=== PATIENT | male | born 1965 | race Caucasian/White ===

== ENCOUNTER 2019-07-31 12:02 | Emergency (ER) | payer OTHER, BC ==
[2019-07-31] MEDS ORDERED: NORCO 5/325 MG PO ONE (12:53)
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
[2019-07-31] MEDS ORDERED: NORCO 5/325 MG ONE (13:03)
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
[2019-07-31 14:28] VITALS: BP 131/85; PULSE 83
[2019-07-31 19:59] VITALS: O2SAT 97
== END 2019-07-31 14:30 | disposition home or self-care (01) ==
LOC: ED 12:02
DX: R07.89 Other chest pain (principal); M25.532 Pain in left wrist; S63.502A Unspecified sprain of left wrist, initial encounter; V89.2XXA Person injured in unspecified motor-vehicle accident, traffic, initial encounter; I10 Essential (primary) hypertension; E78.00 Pure hypercholesterolemia, unspecified; E11.9 Type 2 diabetes mellitus without complications; Z86.73 Personal history of transient ischemic attack (TIA), and cerebral infarction without residual deficits
CPT/HCPCS: 71046; 73110; 73130; 99284; A9270-GY

== ENCOUNTER 2020-12-03 03:03 | Emergency (ER) | payer OTHER ==
[2020-12-03] MEDS ORDERED: NITRO-BID 2% UD PACKETS TOP ONE (03:10)
--- NOTE | 2020-12-03 03:11 | ERPHSYRPT ---
- History of Present Illness Time Seen by Provider: 12/03/20 03:20 Historian: patient Exam Limitations: no limitations Physician History: Patient is a 55-year-old male presents to our emergency department with complaints of chest tightness. Patient is an employee at [employer]. Patient states he was sitting down and developed a chest tightness that spanned across his chest. Symptoms lasted for approximately 25 minutes. No associated nausea vomiting or diaphoresis. Patient had a cardiac cath in April. Patient states his blockage at that time was approximately 40%. Patient is not a candidate for stenting. 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 Symptoms are constant. Symptoms are moderate in intensity. No specific worsening improving factors. No trauma no fevers. Patient voices no other complaints or concerns at this time. Timing/Duration: other (A 5 minutes.) Activities at Onset: none Quality: pressure Location: substernal Chest Pain Radiation: no radiation Severity of Pain-Max: moderate Severity of Pain-Current: mild Modifying Factors: Improves With: nothing Associated Symptoms: denies symptoms Prior Chest Pain/Cardiac Workup: no prior chest pain Nitro Today/Relief: no nitro taken today Aspirin Treatment Today: no aspirin today Allergies/Adverse Reactions: codeine [Codeine] Allergy (Verified 12/03/20 03:21) Home Medications: Amlodipine Besylate/Benazepril [Amlodipine-Benazepril 5-20 mg] 1 each PO DAILY 09/22/12 [History] Clopidogrel Bisulfate 75 mg [PLAVIX 75 MG Tablet] 75 mg PO DAILY 09/22/12 [History] Atorvastatin Calcium [Lipitor] 80 mg PO HS 07/31/19 [History] Esomeprazole Magnesium [Nexium] 20 mg PO Q12H PRN PRN 07/31/19 [History] Ezetimibe 10 mg [Zetia 10 MG] 10 mg PO DAILY 07/31/19 [History] Metformin HCl 500 mg [Glucophage 500 MG] 500 mg PO DAILY 07/31/19 [History] Metoprolol Tartrate 25 mg [Lopressor 25MG Tab] 50 mg PO BID 07/31/19 [History] Nitroglycerin 0.4 mg (Ed) [Nitrostat 0.4 MG (ED)] 0.4 mg SL PRN 07/31/19 [History] Potassium Chloride 10 Meq Tab* [Klor Con 10 MEQ] 20 meq PO DAILY 07/31/19 [History] hydroCHLOROthiazide [Hydrochlorothiazide] 12.5 mg PO DAILY 07/31/19 [History] Apixaban [Eliquis 2.5 mg Tablet] 5 mg PO BID 12/03/20 [History] Fluticasone/Vilanterol [Breo Ellipta 100-25 Mcg INH] 1 puff PO DAILY 12/03/20 [History] Isosorbide Mononitrate 30 mg [Imdur 30 MG] 30 mg PO DAILY 12/03/20 [History] Sotalol HCl 80 mg [Betapace 80 MG] 80 mg PO BID 12/03/20 [History] Hx Tetanus, Diphtheria Vaccination/Date Given: No Hx Influenza Vaccination/Date Given: No Hx Pneumococcal Vaccination/Date Given: No - Review of Systems Constitutional: No Symptoms, No Fever, No Chills Eyes: No Symptoms Ears, Nose, & Throat: No Symptoms Respiratory: No Symptoms, No Cough, No Dyspnea Cardiac: No Symptoms, No Chest Pain, No Edema, No Syncope Abdominal/Gastrointestinal: No Symptoms, No Abdominal Pain, No Nausea, No Vomiting, No Diarrhea Genitourinary Symptoms: No Symptoms, No Dysuria Musculoskeletal: No Symptoms, No Back Pain, No Neck Pain Skin: No Symptoms, No Rash Neurological: No Symptoms, No Dizziness, No Focal Weakness, No Sensory Changes Psychological: No Symptoms Endocrine: No Symptoms Hematologic/Lymphatic: No Symptoms Immunological/Allergic: No Symptoms All Other Systems: Reviewed and Negative - Past Medical History Pertinent Past Medical History: Yes Neurological History: Migraines, TIA ENT History: No Pertinent History Cardiac History: Arrhythmia, High Cholesterol, Hypertension Respiratory History: No Pertinent History Endocrine Medical History: No Pertinent History, Diabetes Type II Musculoskeletal History: No Pertinent History GI Medical History: No Pertinent History History: No Pertinent History Psycho-Social History: No Pertinent History Male Reproductive Disorders: No Pertinent History Other Medical History: CARDIOMYOPATHY - Past Surgical History Past Surgical History: Yes Neuro Surgical History: No Pertinent History Cardiac: No Pertinent History, Cardiac Catheterization Respiratory: No Pertinent History Gastrointestinal: Appendectomy Genitourinary: No Pertinent History Musculoskeletal: No Pertinent History Male Surgical History: No Pertinent History Other Surgical History: Last heart cath April 2019 - Social History Smoking Status: Never smoker Exposure to second hand smoke: No Drug Use: none Patient Lives Alone: No - Nursing Vital Signs Nursing Vital Signs: Initial Vital Signs Temperature 97.7 F 12/03/20 03:12 Pulse Rate 79 12/03/20 03:12 Respiratory Rate 20 12/03/20 03:12 Blood Pressure 154/96 12/03/20 03:12 O2 Sat by Pulse Oximetry 97 12/03/20 03:12 Pain Scale Pain Intensity 2 - Physical Exam General Appearance: no apparent distress, alert Eye Exam: PERRL/EOMI, eyes nml inspection Ears, Nose, Throat Exam: normal ENT inspection, moist mucous membranes Neck Exam: normal inspection, non-tender, supple, full range of motion Respiratory Exam: normal breath sounds, lungs clear, No respiratory distress Cardiovascular Exam: regular rate/rhythm, normal heart sounds Gastrointestinal/Abdomen Exam: soft, No tenderness, No mass Back Exam: normal inspection, No CVA tenderness, No vertebral tenderness Extremity Exam: normal inspection, normal range of motion Neurologic Exam: alert, oriented x 3, cooperative, normal mood/affect, sensation nml, No motor deficits Skin Exam: normal color, warm, dry SpO2 Interpretation: normal SpO2: 97 O2 Delivery: Room Air - Course Nursing assessment & vital signs reviewed: Yes EKG Interpreted by Me: RATE (79), Sinus Rhythm, NORMAL AXIS, NORMAL INTERVALS (Nonspecific T wave abnormalities inferior leads possible ischemia.) - Radiology Exams Chest X-ray Interpretation: Interpreted by me (Left base fibrosis. Heart lungs appear normal.) Ordered Tests: Active Orders 24 hr Category Date Time Status Supervisor Instrument Repair STAT Care 12/03/20 03:06 Active EKG-ER Only STAT Care 12/03/20 03:05 Active IV Insertion STAT Care 12/03/20 03:05 Active Pulse Oximetry (ED) STAT Care 12/03/20 03:05 Active CHEST 1 VIEW (PORTABLE) Stat Exams 12/03/20 03:06 Taken CBC W DIFF Stat Lab 12/03/20 03:26 Completed CMP Stat Lab 12/03/20 03:26 Completed Manual Differential NC Stat Lab 12/03/20 03:26 Completed TROPONIN Q3H Lab 12/03/20 03:26 Completed TROPONIN Q3H Lab 12/03/20 06:15 Ordered TROPONIN Q3H Lab 12/03/20 09:15 Ordered TROPONIN Q3H Lab 12/03/20 12:15 Ordered TROPONIN Q3H Lab 12/03/20 15:15 Ordered Medication Summary Discontinued Medications Generic Name Dose Route Start Last Admin Trade Name Judy PRN Reason Stop Dose Admin Nitroglycerin 1 gm 12/03/20 03:10 12/03/20 03:40 Nitro-Bid 2% Ud Packets TOP 12/03/20 03:11 1 gm STAT ONE Administration Nitroglycerin Confirm 12/03/20 03:31 Nitro-Bid 2% Ud Packets Administered 12/03/20 03:32 Dose 1 gm .ROUTE .STK-MED ONE Lab/Rad Data: Laboratory Result Diagrams 12/03/20 03:26 12/03/20 03:26 Laboratory Results 12/03/20 12/03/20 12/03/20 Range/Units 03:26 03:26 03:26 WBC 11.5 H (4.0-10.5) K/mm3 RBC 5.49 (4.1-5.6) M/mm3 Hgb 14.8 (12.5-18.0) gm/dl Hct 45.0 (42-50) % MCV 82.0 (78-100) fl MCH 27.0 (26-32) pg MCHC 32.9 (32-36) g/dl RDW 13.2 (11.5-14.0) % Plt Count 283 (150-450) K/mm3 MPV 9.6 (7.5-11.0) fl Segmented Neutrophils 58 (36.-66.) % Band Neutrophils 1 (0.0-2.0) % Lymphocytes (Manual) 30 (24-44) % Monocytes (Manual) 8 (0.0-12.0) % Eosinophils (Manual) 1 (0.00-3.0) % Basophils (Manual) 1 (0.0-1.0) % Atypical Lymphocytes 1 % Platelet Estimate NORMAL (NORMAL) RBC Morphology NORMAL Sodium 138 (137-145) mmol/L Potassium 3.6 (3.5-5.1) mmol/L Chloride 104 (98-107) mmol/L Carbon Dioxide 23 (22-30) mmol/L Anion Gap 14.3 (5-15) MEQ/L BUN 18 (9-20) mg/dL Creatinine 0.74 (0.66-1.25) mg/dL Estimated GFR > 60.0 ML/MIN Glucose 158 H (74-106) mg/dL Calcium 9.0 (8.4-10.2) mg/dL Total Bilirubin 0.30 (0.2-1.3) mg/dL AST 35 (17-59) U/L ALT 61 H (0-50) U/L Alkaline Phosphatase 90 (38-126) U/L Troponin I < 0.012 (0.000-0.034) ng/mL Serum Total Protein 7.2 (6.3-8.2) g/dL Albumin 4.2 (3.5-5.0) g/dL - Progress Progress: improved Air Movement: good Progress Note: Patient reassessed. Pain improved after nitroglycerin paste applied. Patient took both his Plavix and aspirin today. No indication for additional aspirin or Plavix. Chest x-ray essentially unchanged from previous. Initial troponin negative. EKG appears to show ST segment flattening at leads 5 and 6 versus previous EKG. We intended to admit patient for cardiac rule out however we have no bed availability. Patient's transition teacher is Dr. Salcedo at [facility]. Case discussed with Dr. Peoples who accepts transfer. Plan of care discussed with patient. He agrees to transfer to [facility] for further evaluation and treatment/cardiac rule out. 12/03/20 04:51 Blood Culture(s) Obtained: No Antibiotics given: No Counseled pt/family regarding: lab results, diagnosis, rad results - Departure Departure Disposition: Home Clinical Impression: ACS (acute coronary syndrome), Chest pain Condition: Stable Critical Care Time: No Referrals: NGUYEN GALVAN MD [Primary Care Provider] -
[2020-12-03] MEDS ORDERED: NITRO-BID 2% UD PACKETS ONE (03:31)
[2020-12-03 03:36] LABS: Hemoglobin 14.8 gm/dl (12.5-18.0); Mean Corpuscular Hgb Concent. 32.9 g/dl (32-36); Mean Platelet Volume 9.6 fl (7.5-11.0); Platelet Count 283 K/mm3 (150-450); Red Blood Count 5.49 M/mm3 (4.1-5.6); Red Cell Distribution Width 13.2 % (11.5-14.0); White Blood Count 11.5 K/mm3 (4.0-10.5)
[2020-12-03 03:40] LABS: ALBUMIN 4.2 g/dL (3.5-5.0); ALKALINE PHOSPHATASE 90 U/L (38-126); ANION GAP 14.3 MEQ/L (5-15); BLOOD UREA NITROGEN 18 mg/dL (9-20); CHLORIDE 104 mmol/L (98-107); Carbon Dioxide 23 mmol/L (22-30); Creatinine 1 0.74 mg/dL (0.66-1.25); EST GLOMERULAR FILTRATION RATE > 60.0 ML/MIN; Glucose 158 mg/dL (74-106); Potassium 3.6 mmol/L (3.5-5.1); SGOT/AST 35 U/L (17-59); SGPT/ALT 61 U/L (0-50); SODIUM 138 mmol/L (137-145); Total Protein 7.2 g/dL (6.3-8.2)
[2020-12-03 04:15] VITALS: PULSE 74
[2020-12-03 04:52] LABS: ATYPICAL LYMPHS 1 %; BAND 1 % (0.0-2.0); Basophil 1 % (0.0-1.0); Eosinophil 1 % (0.00-3.0); Lymphocytes 30 % (24-44); Monocyte 8 % (0.0-12.0); Neutrophils 58 % (36.-66.); Platelet Estimate NORMAL (NORMAL); Total Cells Counted 100
[2020-12-03 05:08] VITALS: BP 157/98; O2SAT 95
--- NOTE | 2020-12-03 09:07 | XRAY ---
Indication: Chest pain. Comparison: July 31, 2019. Portable chest unchanged again demonstrating left base fibrosis/scarring. No focal infiltrate, consolidation, or large effusion. Heart not enlarged. Bony thorax intact. Impression: Continued nonacute chest with chronic features.
== END 2020-12-03 05:35 | disposition short-term general hospital (02) ==
LOC: ED 03:03
DX: R07.9 Chest pain, unspecified (principal)
CPT/HCPCS: 36000; 36415; 71045; 80053; 84484; 85025; 93005; 93041; 94760; 99285; A9270-GY

== ENCOUNTER 2021-10-09 20:33 | Emergency (ER) | payer OTHER ==
[2021-10-09] MEDS ORDERED: TYLENOL EXTRA STRENGTH 500 MG PO ONE (20:41)
[2021-10-09 20:43] VITALS: PULSE 85; O2SAT 95
--- NOTE | 2021-10-09 20:46 | ERPHSYRPT ---
- History of Present Illness Time Seen by Provider: 10/09/21 20:43 Source: patient Exam Limitations: no limitations Patient Subjective Stated Complaint: pt states "I have been outside working all day and rolled my ankle cause it was very uneven ground." Triage Nursing Assessment: Pt presents to ED in a wheelchair c/o L ankle injury. 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 He was walking approximately 4 PM or 4 hours ago when he was unknown on uneven ground and suffered an inversion injury to the ankle his primary pain and swelling is over the lateral malleolus. Method of Injury: twisted Occurred: hours ago (5) Quality: constant, throbbing Severity of Pain-Max: moderate Severity of Pain-Current: moderate Lower Extremities Pain: ankle: left (Pain and swelling) Modifying Factors: Improves With: movement Associated Symptoms: unable to bear weight Allergies/Adverse Reactions: codeine [Codeine] Allergy (Mild, Verified 10/09/21 20:35) Home Medications: Amlodipine Besylate/Benazepril [Amlodipine-Benazepril 5-20 mg] 1 each PO DAILY 09/22/12 [History] Atorvastatin Calcium [Lipitor] 80 mg PO HS 07/31/19 [History] Esomeprazole Magnesium [Nexium] 20 mg PO Q12H PRN PRN 07/31/19 [History] Ezetimibe 10 mg [Zetia 10 MG] 10 mg PO DAILY 07/31/19 [History] Metformin HCl 500 mg [Glucophage 500 MG] 500 mg PO DAILY 07/31/19 [History] Metoprolol Tartrate 25 mg [Lopressor 25MG Tab] 50 mg PO BID 07/31/19 [History] Nitroglycerin 0.4 mg (Ed) [Nitrostat 0.4 MG (ED)] 0.4 mg SL PRN 07/31/19 [History] Potassium Chloride Tab* [Klor Con 10 MEQ] 20 meq PO DAILY 07/31/19 [History] hydroCHLOROthiazide [Hydrochlorothiazide] 12.5 mg PO DAILY 07/31/19 [History] Apixaban [Eliquis 2.5 mg Tablet] 5 mg PO BID 12/03/20 [History] Fluticasone/Vilanterol [Breo Ellipta 100-25 Mcg INH] 1 puff PO DAILY 12/03/20 [History] Isosorbide Mononitrate 30 mg [Imdur 30 MG] 90 mg PO DAILY 12/03/20 [History] Sotalol HCl 80 mg [Betapace 80 MG] 80 mg PO BID 12/03/20 [History] Ranolazine 500 MG [Ranexa 500 MG] 1,000 mg PO BID 10/09/21 [History] Hx Tetanus, Diphtheria Vaccination/Date Given: No Hx Influenza Vaccination/Date Given: No Hx Pneumococcal Vaccination/Date Given: No Immunizations Up to Date: No Travel Risk - International Travel Have you traveled outside of the country in past 3 weeks: No - Coronavirus Screening Are you exhibiting any of the following symptoms?: No - Vaccine Status Have you recieved a Covid-19 vaccination: Yes 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: [employer] - Review of Systems Constitutional: No Fever, No Chills Eyes: No Symptoms Ears, Nose, & Throat: No Symptoms Respiratory: No Cough, No Dyspnea Cardiac: No Chest Pain, No Edema, No Syncope Abdominal/Gastrointestinal: No Abdominal Pain, No Nausea, No Vomiting, No Diarrhea Genitourinary Symptoms: No Dysuria Musculoskeletal: Joint Pain, Joint Swelling, No Back Pain, No Neck Pain Skin: No Rash Neurological: No Dizziness, No Focal Weakness, No Sensory Changes Psychological: No Symptoms Endocrine: No Symptoms All Other Systems: Reviewed and Negative - Past Medical History Pertinent Past Medical History: Yes Neurological History: Migraines, TIA ENT History: No Pertinent History Cardiac History: Arrhythmia, High Cholesterol, Hypertension Respiratory History: No Pertinent History Endocrine Medical History: No Pertinent History, Diabetes Type II Musculoskeletal History: No Pertinent History GI Medical History: No Pertinent History History: No Pertinent History Psycho-Social History: No Pertinent History Male Reproductive Disorders: No Pertinent History Other Medical History: CARDIOMYOPATHY - Past Surgical History Past Surgical History: Yes Neuro Surgical History: No Pertinent History Cardiac: No Pertinent History, Cardiac Catheterization Respiratory: No Pertinent History Gastrointestinal: Appendectomy Genitourinary: No Pertinent History Musculoskeletal: No Pertinent History Male Surgical History: No Pertinent History Other Surgical History: Last heart cath April 2019 - Social History Smoking Status: Never smoker Exposure to second hand smoke: No Drug Use: none Patient Lives Alone: No - Nursing Vital Signs Nursing Vital Signs: Initial Vital Signs Temperature 97.0 F 10/09/21 20:36 Pulse Rate 85 10/09/21 20:36 Respiratory Rate 16 10/09/21 20:36 Blood Pressure 178/98 10/09/21 20:36 O2 Sat by Pulse Oximetry 95 10/09/21 20:36 Pain Scale Pain Intensity 9 - Physical Exam General Appearance: mild distress, alert Eyes, Ears, Nose, Throat Exam: moist mucous membranes Neck Exam: normal inspection, non-tender, supple Back Exam: normal inspection, normal range of motion Hips Exam: bilateral: non-tender, normal inspection, normal range of motion, no evidence of injury Legs Exam: bilateral leg: non-tender, normal inspection, normal range of motion, no evidence of injury Knees Exam: bilateral knee: non-tender, normal inspection, normal range of motion, no evidence of injury Ankle Exam: left ankle: bone tenderness, joint effusion, limited range of motion, pain, soft tissue tenderness, swelling Foot Exam: bilateral foot: non-tender, normal inspection, normal range of motion, no evidence of injury Neuro/Tendon Exam: normal sensation, normal motor functions Mental Status Exam: alert, oriented x 3, cooperative Skin Exam: normal color, warm, dry SpO2 Interpretation: normal SpO2: 95 O2 Delivery: Room Air - Course Nursing assessment & vital signs reviewed: Yes - Radiology Exams Left Ankle X-ray Interpretation: Interpreted by me, Reviewed by me Ordered Tests: Active Orders 24 hr Category Date Time Status Splint STAT Care 10/09/21 21:24 Ordered ANKLE (3 VIEWS) Stat Exams 10/09/21 20:39 Taken Medication Summary Discontinued Medications Generic Name Dose Route Start Last Admin Trade Name Judy PRN Reason Stop Dose Admin Acetaminophen 1,000 mg 10/09/21 20:41 10/09/21 20:54 Acetaminophen 500 Mg Tablet PO 10/09/21 20:42 1,000 mg STAT ONE Administration Acetaminophen Confirm 10/09/21 20:53 Acetaminophen 500 Mg Tablet Administered 10/09/21 20:54 Dose 1,000 mg .ROUTE .STK-MED ONE - Progress Progress: unchanged - Departure Departure Disposition: Home Clinical Impression: Left ankle sprain Condition: Stable Critical Care Time: No Instructions: Ankle Sprain (DC)
[2021-10-09] MEDS ORDERED: TYLENOL EXTRA STRENGTH 500 MG ONE (20:53)
[2021-10-09 21:42] VITALS: BP 162/87
--- NOTE | 2021-10-09 22:18 | XRAY ---
Indication: Pain following twisting injury. Comparison: None 3 view left ankle demonstrates mild anterolateral soft tissue swelling. No other bony, articular, or soft tissue abnormalities.
== END 2021-10-09 21:42 | disposition home or self-care (01) ==
LOC: ED 20:33
DX: S93.402A Sprain of unspecified ligament of left ankle, initial encounter (principal); X50.0XXA Overexertion from strenuous movement or load, initial encounter; Y93.01 Activity, walking, marching and hiking; M25.572 Pain in left ankle and joints of left foot; E78.5 Hyperlipidemia, unspecified; I10 Essential (primary) hypertension; E11.9 Type 2 diabetes mellitus without complications; Z79.01 Long term (current) use of anticoagulants; Z79.84 Long term (current) use of oral hypoglycemic drugs; Z79.899 Other long term (current) drug therapy
CPT/HCPCS: 73610; 99284; A9270-GY

== ENCOUNTER 2022-04-15 21:05 | Emergency (ER) | payer OTHER ==
--- NOTE | 2022-04-15 21:11 | ERPHSYRPT ---
- History of Present Illness Time Seen by Provider: 04/15/22 21:11 Source: patient, EMS Exam Limitations: no limitations Physician History: This is a 56-year-old white male has a history of hypertension and atrial fibrillation and is taking Eliquis and presents via ambulance service because of complaint of weakness and some right upper extremity and right lower extremity numbness that has nearly completely resolved prior to arrival to the emergency department. Patient has had multiple TIAs in the past. He denies chest pain. He denies headache. He denies shortness of breath. He has no abdominal pain. Patient does have a history of hyperlipidemia, gastroesophageal reflux disease, migraine headaches, cardiomyopathy and diabetes type 2. Patient had a long day at work yesterday and today just felt very tired all day. Approximately 2 to 3 hours prior to arrival to the emergency department, he noticed some numbness that was present in his right upper extremity and right lower extremity similar to past TIAs. It is nearly completely resolved but he still says it does not feel 100% normal but it is getting better. He has no vision complaints and he has no complaints or noticeable speech issues. Timing/Duration: today, gradual onset, improved Severity: mild Associated Symptoms: weakness Allergies/Adverse Reactions: codeine [Codeine] Allergy (Mild, Verified 10/09/21 20:35) Home Medications: Amlodipine Besylate/Benazepril [Amlodipine-Benazepril 5-20 mg] 1 each PO DAILY 09/22/12 [History] Atorvastatin Calcium [Lipitor] 80 mg PO HS 07/31/19 [History] Esomeprazole Magnesium [Nexium] 20 mg PO Q12H PRN PRN 07/31/19 [History] Ezetimibe 10 mg [Zetia 10 MG] 10 mg PO DAILY 07/31/19 [History] Metformin HCl 500 mg [Glucophage 500 MG] 500 mg PO DAILY 07/31/19 [History] Metoprolol Tartrate 25 mg [Lopressor 25MG Tab] 50 mg PO BID 07/31/19 [History] Nitroglycerin 0.4 mg (Ed) [Nitrostat 0.4 MG (ED)] 0.4 mg SL PRN 07/31/19 [History] Potassium Chloride Tab* [Klor Con 10 MEQ] 20 meq PO DAILY 07/31/19 [History] hydroCHLOROthiazide [Hydrochlorothiazide] 12.5 mg PO DAILY 07/31/19 [History] Apixaban [Eliquis 2.5 mg Tablet] 5 mg PO BID 12/03/20 [History] Isosorbide Mononitrate 30 mg [Imdur 30 MG] 90 mg PO DAILY 12/03/20 [History] Sotalol HCl 80 mg [Betapace 80 MG] 80 mg PO BID 12/03/20 [History] Ranolazine 500 MG [Ranexa 500 MG] 1,000 mg PO BID 10/09/21 [History] Albuterol Sulfate [Albuterol Sulfate Hfa] 2 puff IH Q4H PRN PRN 04/15/22 [History] Hx Tetanus, Diphtheria Vaccination/Date Given: No Hx Influenza Vaccination/Date Given: No Hx Pneumococcal Vaccination/Date Given: No Travel Risk - International Travel Have you traveled outside of the country in past 3 weeks: No - Coronavirus Screening Are you exhibiting any of the following symptoms?: No Close contact with a COVID-19 positive Pt in past 14-21 Days: No - Vaccine Status Have you recieved a Covid-19 vaccination: Yes 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[employer] - Review of Systems Constitutional: Weakness Eyes: No Symptoms Ears, Nose, & Throat: No Symptoms, Throat Swelling Respiratory: No Symptoms Cardiac: No Symptoms Abdominal/Gastrointestinal: No Symptoms Genitourinary Symptoms: No Symptoms Musculoskeletal: No Symptoms Skin: No Symptoms Neurological: Parasthesia (Right upper extremity and right lower extremity numbness) Psychological: No Symptoms Endocrine: No Symptoms Hematologic/Lymphatic: No Symptoms Immunological/Allergic: No Symptoms All Other Systems: Reviewed and Negative - Past Medical History Pertinent Past Medical History: Yes Neurological History: Migraines, TIA ENT History: No Pertinent History Cardiac History: Arrhythmia, High Cholesterol, Hypertension Respiratory History: No Pertinent History Endocrine Medical History: No Pertinent History, Diabetes Type II Musculoskeletal History: No Pertinent History GI Medical History: No Pertinent History History: No Pertinent History Psycho-Social History: No Pertinent History Male Reproductive Disorders: No Pertinent History Other Medical History: CARDIOMYOPATHY - Past Surgical History Past Surgical History: Yes Neuro Surgical History: No Pertinent History Cardiac: No Pertinent History, Cardiac Catheterization Respiratory: No Pertinent History Gastrointestinal: Appendectomy Genitourinary: No Pertinent History Musculoskeletal: No Pertinent History Male Surgical History: No Pertinent History Other Surgical History: Last heart cath April 2019 - Social History Smoking Status: Never smoker Exposure to second hand smoke: No Drug Use: none Patient Lives Alone: No - Nursing Vital Signs Nursing Vital Signs: Initial Vital Signs Temperature 98.2 F 04/15/22 21:05 Pulse Rate 78 04/15/22 21:05 Respiratory Rate 14 04/15/22 21:05 Blood Pressure 170/112 04/15/22 21:05 O2 Sat by Pulse Oximetry 97 04/15/22 21:05 Pain Scale Pain Intensity 0 - Physical Exam General Appearance: no apparent distress, alert, anxiety Eye Exam: PERRL/EOMI, eyes nml inspection Ears, Nose, Throat Exam: normal ENT inspection, moist mucous membranes Neck Exam: normal inspection, non-tender, supple, full range of motion Respiratory Exam: normal breath sounds, lungs clear, airway intact, No chest tenderness, No respiratory distress Cardiovascular Exam: regular rate/rhythm, normal heart sounds, normal peripheral pulses Gastrointestinal/Abdomen Exam: soft, normal bowel sounds, No tenderness Rectal Exam: not done Extremity Exam: normal inspection, normal range of motion, pelvis stable Neurologic Exam: alert, oriented x 3, cooperative, 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 as tested, normal mood/affect, sensation nml, No facial droop, No slurred speech, No ap hasia Skin Exam: normal color, warm, dry Lymphatic Exam: No adenopathy SpO2 Interpretation: normal O2 Delivery: Room Air - Course Nursing assessment & vital signs reviewed: Yes EKG Interpreted by Me: RATE (75), Sinus Rhythm, NORMAL AXIS, NORMAL INTERVALS, NORMAL QRS, NORMAL ST-T, Other Ordered Tests: Active Orders 24 hr Category Date Time Status EKG-ER Only STAT Care 04/15/22 21:24 Active IV Insertion STAT Care 04/15/22 21:24 Active Pulse Oximetry (ED) STAT Care 04/15/22 21:24 Active HEAD WITHOUT CONTRAST [CT] Stat Exams 04/15/22 21:06 Taken CBC W DIFF Stat Lab 04/15/22 22:00 Completed CMP Stat Lab 04/15/22 22:00 Completed PROTIME WITH INR Stat Lab 04/15/22 22:00 Completed TROPONIN Q4H Lab 04/15/22 22:00 Completed TROPONIN Q4H Lab 04/16/22 01:30 Ordered TROPONIN Q4H Lab 04/16/22 05:30 Ordered UA W/RFX CULTURE Stat Lab 04/15/22 22:00 Completed Lab/Rad Data: Laboratory Result Diagrams 04/15/22 22:00 04/15/22 22:00 Laboratory Results 04/15/22 04/15/22 04/15/22 Range/Units 22:00 22:00 22:00 WBC (4.0-10.5) x10^3/uL RBC (4.1-5.6) x10^6/uL Hgb (12.5-18.0) g/dL Hct (42-50) % MCV (78-100) fL MCH (26-32) pg MCHC (32-36) g/dL RDW (11.5-14.0) % Plt Count (150-450) x10^3/uL MPV (7.5-11.0) fL Gran % (36.0-66.0) % Immature Gran % (Auto) (0.00-0.4) % Nucleat RBC Rel Count (0.00-0.1) % Eos # (Auto) (0-0.5) x10^3/uL Immature Gran # (Auto) (0.00-0.03) x10^3u/L Absolute Lymphs (auto) (1.0-4.6) x10^3/uL Absolute Monos (auto) (0.0-1.3) x10^3/uL Absolute Nucleated RBC (0.00-0.01) x10^3u/L Lymphocytes % (24.0-44.0) % Monocytes % (0.0-12.0) % Eosinophils % (0.00-5.0) % Basophils % (0.0-0.4) % Absolute Granulocytes (1.4-6.9) x10^3/uL Basophils # (0-0.4) x10^3/uL PT (9.4-12.5) SECONDS INR (0.8-3.0) Sodium (137-145) mmol/L Potassium (3.5-5.1) mmol/L Chloride (98-107) mmol/L Carbon Dioxide (22-30) mmol/L Anion Gap (5-15) MEQ/L BUN (9-20) mg/dL Creatinine (0.66-1.25) mg/dL Estimated GFR ML/MIN Glucose (74-106) mg/dL Calcium (8.4-10.2) mg/dL Total Bilirubin (0.2-1.3) mg/dL AST (17-59) U/L ALT (0-50) U/L Alkaline Phosphatase (38-126) U/L Troponin I < 0.012 (0.000-0.034) ng/mL Serum Total Protein (6.3-8.2) g/dL Albumin (3.5-5.0) g/dL Urinalys Dipstick Clnc MAIN LAB Urine Color YELLOW (YELLOW) Urine Appearance CLEAR (CLEAR) Urine pH 6.0 (5-6) Ur Specific Wiley >=1.030 A (1.005-1.025) POC Urine Protein Conf NEGATIVE (Negative) Urine Ketones NEGATIVE (NEGATIVE) Urine Nitrite NEGATIVE (NEGATIVE) Urine Bilirubin NEGATIVE (NEGATIVE) Urine Urobilinogen 0.2 (0-1) mg/dL Urine Leukocytes NEGATIVE (NEGATIVE) Urine WBC (Auto) NONE (0-5) /HPF Urine RBC (Auto) NONE (0-2) /HPF U Epithel Cells (Auto) NONE (FEW) /HPF Urine Bacteria (Auto) NONE (NEGATIVE) /HPF Urine RBC NEGATIVE (0-5) Reza/ul Urine Mucus (Auto) SLIGHT A (NEGATIVE) /HPF Ur Culture Indicated? NO Urine Glucose NEGATIVE (NEGATIVE) mg/dL Influenza Type A Ag NEGATIVE (NEGATIVE) Influenza Type B Ag NEGATIVE (NEGATIVE) RSV (PCR) NEGATIVE (Negative) SARS-CoV-2 (PCR) NEGATIVE (NEGATIVE) 04/15/22 04/15/22 04/15/22 Range/Units 22:00 22:00 22:00 WBC 8.4 (4.0-10.5) x10^3/uL RBC 5.25 (4.1-5.6) x10^6/uL Hgb 14.6 (12.5-18.0) g/dL Hct 44.4 (42-50) % MCV 84.6 (78-100) fL MCH 27.8 (26-32) pg MCHC 32.9 (32-36) g/dL RDW 12.7 (11.5-14.0) % Plt Count 254 (150-450) x10^3/uL MPV 9.4 (7.5-11.0) fL Gran % 59.9 (36.0-66.0) % Immature Gran % (Auto) 0.6 H (0.00-0.4) % Nucleat RBC Rel Count 0.0 (0.00-0.1) % Eos # (Auto) 0.40 (0-0.5) x10^3/uL Immature Gran # (Auto) 0.05 H (0.00-0.03) x10^3u/L Absolute Lymphs (auto) 1.72 (1.0-4.6) x10^3/uL Absolute Monos (auto) 1.13 (0.0-1.3) x10^3/uL Absolute Nucleated RBC 0.00 (0.00-0.01) x10^3u/L Lymphocytes % 20.5 L (24.0-44.0) % Monocytes % 13.4 H (0.0-12.0) % Eosinophils % 4.8 (0.00-5.0) % Basophils % 0.8 (0.0-0.4) % Absolute Granulocytes 5.04 (1.4-6.9) x10^3/uL Basophils # 0.07 (0-0.4) x10^3/uL PT 9.8 (9.4-12.5) SECONDS INR 0.92 (0.8-3.0) Sodium 137 (137-145) mmol/L Potassium 3.8 (3.5-5.1) mmol/L Chloride 106 (98-107) mmol/L Carbon Dioxide 23 (22-30) mmol/L Anion Gap 12.4 (5-15) MEQ/L BUN 21 H (9-20) mg/dL Creatinine 0.87 (0.66-1.25) mg/dL Estimated GFR > 60.0 ML/MIN Glucose 115 H (74-106) mg/dL Calcium 8.5 (8.4-10.2) mg/dL Total Bilirubin 0.40 (0.2-1.3) mg/dL AST 25 (17-59) U/L ALT 39 (0-50) U/L Alkaline Phosphatase 105 (38-126) U/L Troponin I (0.000-0.034) ng/mL Serum Total Protein 7.3 (6.3-8.2) g/dL Albumin 4.0 (3.5-5.0) g/dL Urinalys Dipstick Clnc Urine Color (YELLOW) Urine Appearance (CLEAR) Urine pH (5-6) Ur Specific Wiley (1.005-1.025) POC Urine Protein Conf (Negative) Urine Ketones (NEGATIVE) Urine Nitrite (NEGATIVE) Urine Bilirubin (NEGATIVE) Urine Urobilinogen (0-1) mg/dL Urine Leukocytes (NEGATIVE) Urine WBC (Auto) (0-5) /HPF Urine RBC (Auto) (0-2) /HPF U Epithel Cells (Auto) (FEW) /HPF Urine Bacteria (Auto) (NEGATIVE) /HPF Urine RBC (0-5) Reza/ul Urine Mucus (Auto) (NEGATIVE) /HPF Ur Culture Indicated? Urine Glucose (NEGATIVE) mg/dL Influenza Type A Ag (NEGATIVE) Influenza Type B Ag (NEGATIVE) RSV (PCR) (Negative) SARS-CoV-2 (PCR) (NEGATIVE) - Progress Progress: improved, re-examined Progress Note: 04/15/22 23:17 CT of the head without contrast shows old right-sided remote in infarcts but no acute/new intracranial abnormalities. Medical decision making: This patient clinically is doing very well. His symptoms have resolved completely. He states he is feeling much better. He is neurologically intact. His has the same observation. Patient states that he has been through this type of thing several times in the past and does not want admission or transfer. I do not feel it is necessary at this time for him to be admitted or transferred. His systolic blood pressure upon entrance into the emergency department is in the 170s. Without intervention, his systolic blood pressures have ranged between 139 and 151. He currently has no chest pain. He has no headache. He has no abdominal pain. He is not short of breath. He wants to go home. I think this is reasonable. He will be taking his nighttime medicines when he arrives at home. Counseled pt/family regarding: lab results, need for follow-up, rad results - Departure Departure Disposition: Home Clinical Impression: Weakness, TIA (transient ischemic attack) Condition: Stable Critical Care Time: No [facility] - Follow up/PCP as directed Additional Instructions: Continue medication as prescribed. Return to the emergency department if your symptoms return.
[2022-04-15 22:16] LABS: Absolute Neutrophil Ct (ANC) 5.04 x10^3/uL (1.4-6.9); Basophil (Absolute #) 0.07 x10^3/uL (0-0.4); Eosinophil % 4.8 % (0.00-5.0); Hematocrit 44.4 % (42-50); Hemoglobin 14.6 g/dL (12.5-18.0); Lymphocyte (Absolute #) 1.72 x10^3/uL (1.0-4.6); Lymphocytes % 20.5 % (24.0-44.0); Mean Cell Volume 84.6 fL (78-100); Mean Corpuscular Hemoglobin 27.8 pg (26-32); Mean Corpuscular Hgb Concent. 32.9 g/dL (32-36); Mean Platelet Volume 9.4 fL (7.5-11.0); Monocyte (Absolute #) 1.13 x10^3/uL (0.0-1.3); Monocytes % 13.4 % (0.0-12.0); Neutrophil % 59.9 % (36.0-66.0); Platelet Count 254 x10^3/uL (150-450); Red Blood Count 5.25 x10^6/uL (4.1-5.6); Red Cell Distribution Width 12.7 % (11.5-14.0); White Blood Count 8.4 x10^3/uL (4.0-10.5)
[2022-04-15 22:17] VITALS: O2SAT 95
[2022-04-15 22:19] LABS: Mucus SLIGHT /HPF (NEGATIVE)
[2022-04-15 22:31] LABS: ALKALINE PHOSPHATASE 105 U/L (38-126); ANION GAP 12.4 MEQ/L (5-15); BLOOD UREA NITROGEN 21 mg/dL (9-20); CHLORIDE 106 mmol/L (98-107); Calcium 8.5 mg/dL (8.4-10.2); Carbon Dioxide 23 mmol/L (22-30); Creatinine 1 0.87 mg/dL (0.66-1.25); EST GLOMERULAR FILTRATION RATE > 60.0 ML/MIN; Glucose 115 mg/dL (74-106); INR 0.92 (0.8-3.0); PROTIME 9.8 SECONDS (9.4-12.5); Potassium 3.8 mmol/L (3.5-5.1); SGOT/AST 25 U/L (17-59); SGPT/ALT 39 U/L (0-50); SODIUM 137 mmol/L (137-145); Total Protein 7.3 g/dL (6.3-8.2)
[2022-04-15 22:36] LABS: Appearance CLEAR (CLEAR); Bilirubin NEGATIVE (NEGATIVE); Glucose NEGATIVE (NEGATIVE); Ketones NEGATIVE (NEGATIVE); Specific Gravity >=1.030 (1.005-1.025)
[2022-04-15 22:37] LABS: Dipstick done @ ? MAIN LAB; Nitrite NEGATIVE (NEGATIVE); Protein,Urine Dip NEGATIVE (Negative); RBC NEGATIVE Ery/ul (0-5); Urine Cultured Indicated? NO; Urobilinogen 0.2 mg/dL (0-1)
[2022-04-15 22:51] LABS: INFLUENZA A NEGATIVE (NEGATIVE); INFLUENZA B NEGATIVE (NEGATIVE); RESPIRATORY SYNCTIAL VIRUS NEGATIVE (Negative); SARS-CoV-2 Xpert Express NEGATIVE (NEGATIVE)
[2022-04-15 23:07] VITALS: BP 146/92; PULSE 79
--- NOTE | 2022-04-16 08:55 | XRAY ---
Indication: Right-sided weakness. Stroke. Multiple contiguous axial images obtained through the head without contrast. Comparison: None Age-appropriate global atrophy. Remote lacunar infarct right basal ganglia. No acute intracranial hemorrhage, abnormal extra-axial fluid collection, or mass effect. Fourth ventricle is midline without hydrocephalus. Lyon-white matter differentiation preserved. Bony calvarium intact. Visualized paranasal sinuses and mastoid air cells are clear. Impression: Remote lacunar infarct right basal ganglia. No acute intracranial abnormalities.
== END 2022-04-15 23:30 | disposition home or self-care (01) ==
LOC: ED 21:05
DX: G45.9 Transient cerebral ischemic attack, unspecified (principal); R53.1 Weakness; R20.2 Paresthesia of skin; E78.5 Hyperlipidemia, unspecified; E11.9 Type 2 diabetes mellitus without complications; I10 Essential (primary) hypertension; Z79.01 Long term (current) use of anticoagulants; Z79.84 Long term (current) use of oral hypoglycemic drugs; Z79.899 Other long term (current) drug therapy
CPT/HCPCS: 0241U; 36000; 36415; 70450; 80053; 81015; 84484; 85025; 85610; 93005; 94760; 99284

== ENCOUNTER 2022-07-08 13:29 | Emergency (ER) | payer OTHER ==
--- NOTE | 2022-07-08 13:33 | ERPHSYRPT ---
- History of Present Illness Time Seen by Provider: 07/08/22 13:33 Source: patient Exam Limitations: no limitations Physician History: This is a 56-year-old white male patient of Dr. Galvan who has had a ureteral lithiasis in the past. He states it was approximately 10 years ago. He has been seen by Dr. Kruger [facility]. This morning, at 8 AM there was sudden onset of left flank pain. He had associated vomiting and the pain worsened. He stated it felt just like his other ureterolithiasis attack. Patient has a history of hypertension, hyperlipidemia, gastroesophageal reflux disease and atrial fibrillation. He is on Eliquis. He also has a history of cardiomyopathy and diabetes. Patient currently denies chest pain and he denies shortness of breath. Timing/Duration: today Method of Injury: other (No injury) Severity of Pain-Max: moderate Severity of Pain-Current: moderate Associated Symptoms: vomiting, lower back pain (Left flank) Previous symptoms: same symptoms as today, no recent treatment Allergies/Adverse Reactions: codeine [Codeine] Allergy (Mild, Verified 10/09/21 20:35) Home Medications: Amlodipine Besylate/Benazepril [Amlodipine-Benazepril 5-20 mg] 1 each PO DAILY 09/22/12 [History] Esomeprazole Magnesium [Nexium] 20 mg PO Q12H PRN PRN 07/31/19 [History] Ezetimibe 10 mg [Zetia 10 MG] 10 mg PO DAILY 07/31/19 [History] Metformin HCl 500 mg [Glucophage 500 MG] 500 mg PO DAILY 07/31/19 [History] Metoprolol Tartrate 25 mg [Lopressor 25MG Tab] 50 mg PO BID 07/31/19 [History] Nitroglycerin 0.4 mg (Ed) [Nitrostat 0.4 MG (ED)] 0.4 mg SL DAILY 07/31/19 [History] Potassium Chloride Tab* [Klor Con 10 MEQ] 20 meq PO DAILY 07/31/19 [History] hydroCHLOROthiazide [Hydrochlorothiazide] 12.5 mg PO DAILY 07/31/19 [History] Apixaban [Eliquis 2.5 mg Tablet] 5 mg PO BID 12/03/20 [History] Isosorbide Mononitrate 30 mg [Imdur 30 MG] 90 mg PO DAILY 12/03/20 [History] Sotalol HCl 80 mg [Betapace 80 MG] 80 mg PO BID 12/03/20 [History] Ranolazine 500 MG [Ranexa 500 MG] 1,000 mg PO BID 10/09/21 [History] Albuterol Sulfate [Albuterol Sulfate Hfa] 2 puff IH Q4H PRN PRN 04/15/22 [History] Hx Tetanus, Diphtheria Vaccination/Date Given: No Hx Influenza Vaccination/Date Given: No Hx Pneumococcal Vaccination/Date Given: No Travel Risk - Coronavirus Screening Are you exhibiting any of the following symptoms?: No Close contact with a COVID-19 positive Pt in past 14-21 Days: No - Vaccine Status Have you recieved a Covid-19 vaccination: Yes 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: [employer] - Review of Systems Constitutional: No Symptoms Eyes: No Symptoms Ears, Nose, & Throat: No Symptoms Respiratory: No Symptoms Cardiac: No Symptoms Abdominal/Gastrointestinal: Nausea, Vomiting, No Abdominal Pain Genitourinary Symptoms: Flank Pain (Left) Skin: No Symptoms Neurological: No Symptoms Psychological: No Symptoms Endocrine: No Symptoms Hematologic/Lymphatic: No Symptoms Immunological/Allergic: No Symptoms All Other Systems: Reviewed and Negative - Past Medical History Pertinent Past Medical History: Yes Neurological History: Migraines, TIA ENT History: No Pertinent History Cardiac History: Arrhythmia, High Cholesterol, Hypertension Respiratory History: No Pertinent History Endocrine Medical History: No Pertinent History, Diabetes Type II Musculoskeletal History: No Pertinent History GI Medical History: No Pertinent History History: No Pertinent History Psycho-Social History: No Pertinent History Male Reproductive Disorders: No Pertinent History Other Medical History: CARDIOMYOPATHY - Past Surgical History Past Surgical History: Yes Neuro Surgical History: No Pertinent History Cardiac: No Pertinent History, Cardiac Catheterization Respiratory: No Pertinent History Gastrointestinal: Appendectomy Genitourinary: No Pertinent History Musculoskeletal: No Pertinent History Male Surgical History: No Pertinent History Other Surgical History: Last heart cath April 2019 - Social History Smoking Status: Never smoker Exposure to second hand smoke: No Drug Use: none Patient Lives Alone: No - Nursing Vital Signs Nursing Vital Signs: Initial Vital Signs Temperature 97.3 F 03/02/23 13:34 Pulse Rate 81 07/08/22 13:34 Respiratory Rate 20 07/08/22 13:34 Blood Pressure 123/76 07/08/22 13:34 O2 Sat by Pulse Oximetry 96 07/08/22 13:34 Pain Scale Pain Intensity 6 - Physical Exam General Appearance: mild distress, alert, anxiety Eye Exam: PERRL/EOMI, eyes nml inspection Ears, Nose, Throat Exam: normal ENT inspection, moist mucous membranes Neck Exam: normal inspection, non-tender, supple, full range of motion Respiratory Exam: normal breath sounds, lungs clear, airway intact, No chest tenderness, No respiratory distress Cardiovascular Exam: regular rate/rhythm, normal heart sounds, normal peripheral pulses Gastrointestinal Exam: soft, normal bowel sounds, No tenderness Rectal Exam: No not done Back Exam: normal inspection, normal range of motion, CVA tenderness, No vertebral tenderness (Left) Extremity Exam: normal inspection, normal range of motion, pelvis stable Neurologic Exam: alert, oriented x 3, cooperative, 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 nml as tested, normal mood/affect, nml cerebellar function, nml station & gait, sensation nml Skin Exam: normal color, warm, dry Lymphatic Exam: No adenopathy SpO2 Interpretation: normal - Course Nursing assessment & vital signs reviewed: Yes Ordered Tests: Active Orders 24 hr Category Date Time Status IV Insertion STAT Care 07/08/22 13:51 Active ABDOMEN AND PELVIS W/0 CONTRAS [CT] Stat Exams 07/08/22 14:03 Completed AMYLASE Stat Lab 07/08/22 14:09 Completed CBC W DIFF Stat Lab 07/08/22 14:09 Completed CMP Stat Lab 07/08/22 14:09 Completed LIPASE Stat Lab 07/08/22 14:09 Completed UA W/RFX UR CULTURE Stat Lab 07/08/22 14:27 Ordered Medication Summary Generic Name Dose Route Start Last Admin Trade Name Freq PRN Reason Stop Dose Admin Hydromorphone HCl 1 mg 07/08/22 14:50 Hydromorphone 1 Mg/1ml Inj 1 Mg/Ml Syringe IV 07/08/22 14:51 STAT ONE Sodium Chloride 1,000 mls @ 999 mls/hr 07/08/22 13:51 07/08/22 14:01 Sodium Chloride 0.9% 1000 Ml IV 07/08/22 14:51 999 mls/hr .Q1H1M STA Administration Discontinued Medications Generic Name Dose Route Start Last Admin Trade Name Judy PRN Reason Stop Dose Admin Hydromorphone HCl 1 mg 07/08/22 13:51 07/08/22 14:02 Hydromorphone 1 Mg/1ml Inj 1 Mg/Ml Syringe IV 07/08/22 13:52 1 mg STAT ONE Administration Hydromorphone HCl Confirm 07/08/22 13:59 Hydromorphone 1 Mg/1ml Inj 1 Mg/Ml Syringe Administered 07/08/22 14:00 Dose 1 mg .ROUTE .STK-MED ONE Sodium Chloride Confirm 07/08/22 13:59 Sodium Chloride 0.9% 1000 Ml Administered 07/08/22 14:00 Dose 1,000 mls @ ud .ROUTE .STK-MED ONE Ondansetron HCl 4 mg 07/08/22 13:51 07/08/22 14:02 Ondansetron Hcl 4 Mg/2 Ml Vial IV 07/08/22 13:52 4 mg STAT ONE Administration Ondansetron HCl Confirm 07/08/22 13:59 Ondansetron Hcl 4 Mg/2 Ml Vial Administered 07/08/22 14:00 Dose 4 mg .ROUTE .STK-MED ONE Tamsulosin HCl 0.4 mg 07/08/22 14:43 Tamsulosin Hcl 0.4 Mg Cap PO 07/08/22 14:44 STAT ONE Lab/Rad Data: Laboratory Result Diagrams 07/08/22 14:09 07/08/22 14:09 Laboratory Results 07/08/22 07/08/22 Range/Units 14:09 14:09 WBC 13.6 H (4.0-10.5) x10^3/uL RBC 5.22 (4.1-5.6) x10^6/uL Hgb 14.5 (12.5-18.0) g/dL Hct 43.8 (42-50) % MCV 83.9 (78-100) fL MCH 27.8 (26-32) pg MCHC 33.1 (32-36) g/dL RDW 12.7 (11.5-14.0) % Plt Count 282 (150-450) x10^3/uL MPV 9.6 (7.5-11.0) fL Gran % 80.0 H (36.0-66.0) % Immature Gran % (Auto) 0.5 H (0.00-0.4) % Nucleat RBC Rel Count 0.0 (0.00-0.1) % Eos # (Auto) 0.08 (0-0.5) x10^3/uL Immature Gran # (Auto) 0.07 H (0.00-0.03) x10^3u/L Absolute Lymphs (auto) 1.31 (1.0-4.6) x10^3/uL Absolute Monos (auto) 1.21 (0.0-1.3) x10^3/uL Absolute Nucleated RBC 0.00 (0.00-0.01) x10^3u/L Lymphocytes % 9.7 L (24.0-44.0) % Monocytes % 8.9 (0.0-12.0) % Eosinophils % 0.6 (0.00-5.0) % Basophils % 0.3 (0.0-0.4) % Absolute Granulocytes 10.86 H (1.4-6.9) x10^3/uL Basophils # 0.04 (0-0.4) x10^3/uL Sodium 141 (137-145) mmol/L Potassium 4.1 (3.5-5.1) mmol/L Chloride 107 (98-107) mmol/L Carbon Dioxide 24 (22-30) mmol/L Anion Gap 14.5 (5-15) MEQ/L BUN 23 H (9-20) mg/dL Creatinine 1.10 (0.66-1.25) mg/dL Estimated GFR > 60.0 ML/MIN Glucose 134 H (74-106) mg/dL Calcium 8.6 (8.4-10.2) mg/dL Total Bilirubin 0.60 (0.2-1.3) mg/dL AST 28 (17-59) U/L ALT 39 (0-50) U/L Alkaline Phosphatase 81 (38-126) U/L Serum Total Protein 7.3 (6.3-8.2) g/dL Albumin 4.2 (3.5-5.0) g/dL Amylase 83 (30-110) U/L Lipase 108 (23-300) U/L - Progress Progress: improved, pain not gone completely, re-examined Progress Note: 07/08/22 14:43 CT scan of the abdomen pelvis without contrast shows a new 6 to 7 mm proximal left ureteral stone. The left kidney is mildly edematous with moderate hydronephrosis on the left side. There are also bilateral renal micro calculi present. This patient has medical issue of moderate complexity. The work-up was based on review of the patient's past medical history, review of the patient's medication list, review of the patient's medication allergies, history of present illness and findings on physical examination. This work-up included pl acement of IV, infusion of normal saline, infusion of antiemetic and Dilaudid intravenously, urinalysis and blood draw as well as CAT scan of the abdomen pelvis without contrast. The results of the studies were reviewed by me. Patient has a ureteral stone that may not pass on its own and there is a degree of obstructive uropathy. We are awaiting his urinalysis. If this is positive for infection we will place him on antibiotics and provide him with a prescription for more antibiotics. He will also be discharged to home with prescriptions for [place] 5/325 and Flomax. We contacted the patient's urologist office, Dr. Umanzor out of [facility]. He is out of the office until next week and Dr. Lovelace, another urologist in the same group will be back in the office tomorrow. There are no appointments available for tomorrow. He will see nurse practitioner Karley Meraz on 07/12/2022 at 11 AM. He has seen this individual before at that urology office. The office states that if the patient is having increasing pain despite treatment they are to proceed to [facility] emergency department. This information and instructions were relayed to the patient. Counseled pt/family regarding: lab results, diagnosis, need for follow-up, rad results Medical Desision Making - Discussion of managment Reviewed:: Test results Agreed on:: Treatment plan, need for follow-up - Diagnostic Testing Diagnostic test were ordered, analyzed, and reviewed by me: Yes Radiological Interpretation: Reviewed by me, Teleradiologist Report - Risk of complications Low Risk: Low risk of morbidity from additional dx testing or treatment The pt has a mod risk of morbidity or mortality based on: Need for prescription drug management - Departure Departure Disposition: Home Clinical Impression: Left ureteral stone Condition: Stable Critical Care Time: No Referrals: NGUYEN GALVAN MD [Primary Care Provider] - Follow up/PCP as directed Additional Instructions: Drink plenty of fluids. Take your medication as prescribed. Follow-up with Karley Torres in Dr. Umanzor's office on 07/12/2022 at 11 AM. Your appointment is at 1130. Per Dr. Kruger's office, if your pain becomes significant despite treatment between and 07/12/2022, proceed to [facility] emergency department for further evaluation and management. Prescriptions: Hydrocodone/APAP 5/325 [[place] 5/325 mg] 1 each PO Q6H PRN PRN #10 tablet MDD 4 PRN Reason: Pain Tamsulosin HCl 0.4 mg [Flomax 0.4 MG] 0.4 mg PO DAILY #7 cap
[2022-07-08] MEDS ORDERED: Sodium Chloride 0.9% 1000 ML 1,000 ML IV STA (13:51)
[2022-07-08] MEDS ORDERED: Zofran 4 MG/2 ML VIAL IV ONE (13:51)
[2022-07-08] MEDS ORDERED: Hydromorphone 1 mg/ml Injection IV ONE ×2 (13:51→14:50)
[2022-07-08] MEDS ORDERED: Zofran 4 MG/2 ML VIAL ONE (13:59)
[2022-07-08] MEDS ORDERED: Sodium Chloride 0.9% 1000 ML 1,000 ML ONE (13:59)
[2022-07-08] MEDS ORDERED: Hydromorphone 1 mg/ml Injection ONE ×2 (13:59→14:52)
[2022-07-08 14:10] LABS: Absolute Neutrophil Ct (ANC) 10.86 x10^3/uL (1.4-6.9); BASOPHIL % 0.3 % (0.0-0.4); Basophil (Absolute #) 0.04 x10^3/uL (0-0.4); Eosinophil % 0.6 % (0.00-5.0); Eosinophil (Absolute #) 0.08 x10^3/uL (0-0.5); Hematocrit 43.8 % (42-50); Hemoglobin 14.5 g/dL (12.5-18.0); IMMATURE GRAN # 0.07 x10^3u/L (0.00-0.03); IMMATURE GRAN % 0.5 % (0.00-0.4); Lymphocyte (Absolute #) 1.31 x10^3/uL (1.0-4.6); Lymphocytes % 9.7 % (24.0-44.0); Mean Cell Volume 83.9 fL (78-100); Mean Corpuscular Hemoglobin 27.8 pg (26-32); Mean Corpuscular Hgb Concent. 33.1 g/dL (32-36); Mean Platelet Volume 9.6 fL (7.5-11.0); Monocyte (Absolute #) 1.21 x10^3/uL (0.0-1.3); Monocytes % 8.9 % (0.0-12.0); Platelet Count 282 x10^3/uL (150-450); Red Blood Count 5.22 x10^6/uL (4.1-5.6); Red Cell Distribution Width 12.7 % (11.5-14.0); White Blood Count 13.6 x10^3/uL (4.0-10.5)
--- NOTE | 2022-07-08 14:16 | XRAY ---
Indication: Left flank pain. Multiple contiguous axial images obtained through the abdomen and pelvis without contrast using renal stone protocol. Comparison: October 24, 2012 Lung bases again demonstrates scattered subsegmental atelectasis/scarring more than before. Heart not enlarged. New 6-7 mm proximal left ureteral calculus, approximately L2 level. Left kidney is mildly edematous and moderately hydronephrotic consistent with obstructive uropathy. There remains additional bilateral renal micro-calculi. New 9 mm right mid renal cortical cyst. Stomach is distended with fluid/fluid. Noncontrasted stomach and bowel loops nonobstructed again with appendectomy and minimal descending/sigmoid diverticulosis. Liver again demonstrates 2 hepatic cysts, largest 1 cm. Remaining liver, gallbladder, pancreas, spleen, adrenal glands, kidneys, ureters, and bladder are unremarkable for noncontrast exam. Minimal aortic calcifications without AAA. Osseous structures intact with minimal lower thoracic degenerative changes. Impression: 1. New 6-7 mm proximal left ureteral calculus producing obstructive uropathy as detailed. Additional bilateral renal micro-calculi and new subcentimeter right renal cyst. 2. Again minimal colonic diverticulosis and hepatic cysts.
[2022-07-08 14:24] LABS: ALBUMIN 4.2 g/dL (3.5-5.0); ALKALINE PHOSPHATASE 81 U/L (38-126); AMYLASE 83 U/L (30-110); ANION GAP 14.5 MEQ/L (5-15); BLOOD UREA NITROGEN 23 mg/dL (9-20); CHLORIDE 107 mmol/L (98-107); Calcium 8.6 mg/dL (8.4-10.2); Carbon Dioxide 24 mmol/L (22-30); EST GLOMERULAR FILTRATION RATE > 60.0 ML/MIN; Glucose 134 mg/dL (74-106); LIPASE 108 U/L (23-300); Potassium 4.1 mmol/L (3.5-5.1); SGOT/AST 28 U/L (17-59); SGPT/ALT 39 U/L (0-50); SODIUM 141 mmol/L (137-145); Total Protein 7.3 g/dL (6.3-8.2)
[2022-07-08] MEDS ORDERED: Flomax 0.4 MG PO ONE (14:43)
[2022-07-08] MEDS ORDERED: Flomax 0.4 MG ONE (14:52)
[2022-07-08 15:58] VITALS: BP 110/74; PULSE 74; O2SAT 98
[2022-07-08 16:25] LABS: Appearance Clear (Clear); Bacteria None Seen /HPF (None Seen); Bilirubin Negative (Negative); Blood Large (Negative); Epithelial Cells None Seen /HPF (None Seen); Glucose, Urine Negative (Negative); Hyaline Casts NONE SEEN /LPF (0-2); Ketones Negative (Negative); Leukocyte Esterase Trace (Negative); Nitrite Negative (Negative); Ph 6.5 (4.6-8.0); Protein,Urine Dip Negative (Negative); RBC >100 /HPF (0-5); Specific Gravity 1.015 (1.005-1.030); Urobilinogen 0.2 mg/dL (0.2); WBC 0-2 /HPF (0-5)
[2022-07-08 16:53] LABS: ADD URINE CULTURE? YES (NO)
== END 2022-07-08 16:27 | disposition home or self-care (01) ==
LOC: ED 13:29
DX: N13.2 Hydronephrosis with renal and ureteral calculous obstruction (principal); Z87.442 Personal history of urinary calculi; R10.9 Unspecified abdominal pain; R11.2 Nausea with vomiting, unspecified; I10 Essential (primary) hypertension; E78.5 Hyperlipidemia, unspecified; E11.9 Type 2 diabetes mellitus without complications; Z79.01 Long term (current) use of anticoagulants; Z79.84 Long term (current) use of oral hypoglycemic drugs; Z79.899 Other long term (current) drug therapy; Z79.891 Long term (current) use of opiate analgesic
CPT/HCPCS: 36000; 36415; 74176; 80053; 81001; 82150; 83690; 85025; 87086; 96374; 96375; 96376; 99284; 99291; J1170; J2405; A9270-GY

== ENCOUNTER 2023-04-06 14:27 | Emergency (ER) | payer OTHER ==
[2023-04-06] MEDS ORDERED: Zofran 4 MG/2 ML VIAL IV ONE (14:45)
[2023-04-06] MEDS ORDERED: Hydromorphone 1 mg/ml Injection IV ONE ×2 (14:45→17:04)
[2023-04-06] MEDS ORDERED: Sodium Chloride 0.9% 1000 ML 1,000 ML IV STA (14:45)
--- NOTE | 2023-04-06 14:45 | ERPHSYRPT ---
- History of Present Illness Time Seen by Provider: 04/06/23 14:45 Historian: patient Exam Limitations: no limitations Physician History: This is a 57-year-old white male patient who presents to the emergency department with right flank pain that began suddenly and was worsening throughout the day. Patient's primary care provider is Dr. Galvan. Patient has had an appendectomy in the past. Patient has multiple medical issues including hyperlipidemia, hypertension, arrhythmia/cardiomyopathy on anticoagulation therapy, gastroesophageal reflux disease, COPD, TIAs and migraine headaches. Timing/Duration: today Activities at Onset: none Quality: sharpness, stabbing Abdominal Pain Onset Location: flank Pain Radiation: flank (Right) Severity of Pain-Max: moderate Severity of Pain-Current: moderate Modifying Factors: Improves With: vomiting Associated Symptoms: nausea, vomiting Previous symptoms: no prior history Allergies/Adverse Reactions: codeine [Codeine] Allergy (Mild, Verified 04/06/23 14:54) Home Medications: Amlodipine Besylate/Benazepril [Amlodipine-Benazepril 5-20 mg] 1 each PO DAILY 09/22/12 [History] Esomeprazole Magnesium [Nexium] 20 mg PO Q12H PRN PRN 07/31/19 [History] Ezetimibe 10 mg [Zetia 10 MG] 10 mg PO DAILY 07/31/19 [History] Metformin HCl 500 mg [Glucophage 500 MG] 500 mg PO DAILY 07/31/19 [History] Metoprolol Tartrate 25 mg [Lopressor 25MG Tab] 50 mg PO BID 07/31/19 [History] Nitroglycerin 0.4 mg (Ed) [Nitrostat 0.4 MG (ED)] 0.4 mg SL DAILY 07/31/19 [History] Potassium Chloride Tab* [Klor Con 10 MEQ] 20 meq PO DAILY 07/31/19 [History] hydroCHLOROthiazide [Hydrochlorothiazide] 12.5 mg PO DAILY 07/31/19 [History] Isosorbide Mononitrate 30 mg [Imdur 30 MG] 30 mg PO DAILY 12/03/20 [History ] Sotalol HCl 80 mg [Betapace 80 MG] 80 mg PO BID 12/03/20 [History] Ranolazine 500 MG [Ranexa 500 MG] 1,000 mg PO BID 10/09/21 [History] Albuterol Sulfate [Albuterol Sulfate Hfa] 2 puff IH Q4H PRN PRN 04/15/22 [History] Atorvastatin Calcium [Lipitor] 80 mg PO DAILY 04/06/23 [History] Dabigatran Etexilate Mesylate [Pradaxa] 150 mg PO DAILY 04/06/23 [History] Isosorbide Mononitrate 60 mg [Imdur 60MG] 60 mg PO DAILY 04/06/23 [History] Losartan Potassium [Cozaar] 25 mg PO DAILY 04/06/23 [History] Hx Tetanus, Diphtheria Vaccination/Date Given: No Hx Influenza Vaccination/Date Given: No Hx Pneumococcal Vaccination/Date Given: No Travel Risk - International Travel Have you traveled outside of the country in past 3 weeks: No - Coronavirus Screening Are you exhibiting any of the following symptoms?: No Close contact with a COVID-19 positive Pt in past 14-21 Days: No - Vaccine Status Have you recieved a Covid-19 vaccination: Yes 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[employer] [facility] - Review of Systems Constitutional: No Symptoms Eyes: No Symptoms Ears, Nose, & Throat: No Symptoms Respiratory: No Symptoms Cardiac: No Symptoms Abdominal/Gastrointestinal: Nausea, Vomiting, Appetite Changes Genitourinary Symptoms: Flank Pain Musculoskeletal: No Symptoms Skin: No Symptoms Neurological: No Symptoms Psychological: No Symptoms Endocrine: No Symptoms Hematologic/Lymphatic: No Symptoms Immunological/Allergic: No Symptoms All Other Systems: Reviewed and Negative - Past Medical History Pertinent Past Medical History: Yes Neurological History: Migraines, TIA ENT History: No Pertinent History Cardiac History: Arrhythmia, High Cholesterol, Hypertension Respiratory History: No Pertinent History Endocrine Medical History: No Pertinent History, Diabetes Type II Musculoskeletal History: No Pertinent History GI Medical History: No Pertinent History History: No Pertinent History Psycho-Social History: No Pertinent History Male Reproductive Disorders: No Pertinent History Other Medical History: CARDIOMYOPATHY - Past Surgical History Past Surgical History: Yes Neuro Surgical History: No Pertinent History Cardiac: No Pertinent History, Cardiac Catheterization Respiratory: No Pertinent History Gastrointestinal: Appendectomy Genitourinary: No Pertinent History Musculoskeletal: No Pertinent History Male Surgical History: No Pertinent History Other Surgical History: Last heart cath April 2019 - Social History Smoking Status: Never smoker Exposure to second hand smoke: No Drug Use: none Patient Lives Alone: No - Nursing Vital Signs Nursing Vital Signs: Initial Vital Signs Temperature 97.4 F 04/06/23 14:28 Pulse Rate 85 04/06/23 14:28 Respiratory Rate 18 04/06/23 14:28 Blood Pressure 142/91 04/06/23 14:28 O2 Sat by Pulse Oximetry 94 L 04/06/23 14:28 Pain Scale Pain Intensity 6 - Physical Exam General Appearance: no apparent distress, alert, anxiety Eye Exam: PERRL/EOMI, eyes nml inspection Ears, Nose, Throat Exam: normal ENT inspection, moist mucous membranes Neck Exam: normal inspection, non-tender, supple, full range of motion Respiratory Exam: normal breath sounds, lungs clear, airway intact, No chest tenderness, No respiratory distress Cardiovascular Exam: regular rate/rhythm, normal heart sounds, normal peripheral pulses Gastrointestinal/Abdomen Exam: soft, normal bowel sounds, No tenderness Rectal Exam: not done (Right) Back Exam: normal inspection, normal range of motion, CVA tenderness, No vertebral tenderness Extremity Exam: normal inspection, normal range of motion, pelvis stable Neurologic Exam: alert, oriented x 3, cooperative, studio associate II-XII nml as tested, normal mood/affect, nml cerebellar function, nml station & gait, sensation nml Skin Exam: normal color, warm, dry Lymphatic Exam: No adenopathy SpO2 Interpretation: normal O2 Delivery: Room Air - Course Nursing assessment & vital signs reviewed: Yes Ordered Tests: Active Orders 24 hr Category Date Time Status IV Insertion STAT Care 04/06/23 14:45 Active ABDOMEN AND PELVIS W/0 CONTRAS [CT] Stat Exams 04/06/23 14:46 Completed AMYLASE Stat Lab 04/06/23 14:40 Completed CBC W DIFF Stat Lab 04/06/23 14:40 Completed CMP Stat Lab 04/06/23 14:40 Completed LIPASE Stat Lab 04/06/23 14:40 Completed Medication Summary Discontinued Medications Generic Name Dose Route Start Last Admin Trade Name Freq PRN Reason Stop Dose Admin Hydromorphone HCl 0.5 mg 04/06/23 14:45 04/06/23 15:01 Hydromorphone 1 Mg/1ml Inj IV 04/06/23 14:46 0.5 mg STAT ONE Administration Hydromorphone HCl Confirm 04/06/23 14:52 Hydromorphone 1 Mg/1ml Inj Administered 04/06/23 14:53 Dose 1 mg .ROUTE .STK-MED ONE Hydromorphone HCl 1 mg 04/06/23 17:04 04/06/23 17:08 Hydromorphone 1 Mg/1ml Inj IV 04/06/23 17:05 1 mg STAT ONE Administration Hydromorphone HCl Confirm 04/06/23 17:05 Hydromorphone 1 Mg/1ml Inj Administered 04/06/23 17:06 Dose 1 mg .ROUTE .STK-MED ONE Sodium Chloride 1,000 mls @ 999 mls/hr 04/06/23 14:45 04/06/23 15:57 Sodium Chloride 0.9% 1000 Ml IV 04/06/23 15:45 Infused .Q1H1M STA Infusion Sodium Chloride Confirm 04/06/23 14:53 Sodium Chloride 0.9% 1000 Ml Administered 04/06/23 14:54 Dose 1,000 mls @ ud .ROUTE .STK-MED ONE Ondansetron HCl 4 mg 04/06/23 14:45 04/06/23 14:59 Ondansetron Hcl 4 Mg/2 Ml Vial IV 04/06/23 14:46 4 mg STAT ONE Administration Ondansetron HCl Confirm 04/06/23 14:51 Ondansetron Hcl 4 Mg/2 Ml Vial Administered 04/06/23 14:52 Dose 4 mg .ROUTE .STK-MED ONE Lab/Rad Data: Laboratory Result Diagrams 04/06/23 14:40 04/06/23 14:40 Laboratory Results 04/06/23 04/06/23 04/06/23 Range/Units 14:48 14:40 14:40 WBC 9.3 (4.0-10.5) x10^3/uL RBC 5.45 (4.1-5.6) x10^6/uL Hgb 14.5 (12.5-18.0) g/dL Hct 44.2 (42-50) % MCV 81.1 (78-100) fL MCH 26.6 (26-32) pg MCHC 32.8 (32-36) g/dL RDW 12.8 (11.5-14.0) % Plt Count 291 (150-450) x10^3/uL MPV 9.3 (7.5-11.0) fL Gran % 62.6 (36.0-66.0) % Immature Gran % (Auto) 0.3 (0.00-0.4) % Nucleat RBC Rel Count 0.0 (0.00-0.1) % Eos # (Auto) 0.12 (0-0.5) x10^3/uL Immature Gran # (Auto) 0.03 (0.00-0.03) x10^3u/L Absolute Lymphs (auto) 2.41 (1.0-4.6) x10^3/uL Absolute Monos (auto) 0.88 (0.0-1.3) x10^3/uL Absolute Nucleated RBC 0.00 (0.00-0.01) x10^3u/L Lymphocytes % 25.9 (24.0-44.0) % Monocytes % 9.5 (0.0-12.0) % Eosinophils % 1.3 (0.00-5.0) % Basophils % 0.4 (0.0-0.4) % Absolute Granulocytes 5.81 (1.4-6.9) x10^3/uL Basophils # 0.04 (0-0.4) x10^3/uL Sodium 136 L (137-145) mmol/L Potassium 3.7 (3.5-5.1) mmol/L Chloride 103 (98-107) mmol/L Carbon Dioxide 23 (22-30) mmol/L Anion Gap 14.3 (5-15) MEQ/L BUN 21 H (9-20) mg/dL Creatinine 1.04 (0.66-1.25) mg/dL Estimated GFR 83.8 ML/MIN Glucose 132 H (74-106) mg/dL Calcium 9.1 (8.4-10.2) mg/dL Total Bilirubin 0.60 (0.2-1.3) mg/dL AST 27 (17-59) U/L ALT 32 (0-50) U/L Alkaline Phosphatase 75 (38-126) U/L Serum Total Protein 7.7 (6.3-8.2) g/dL Albumin 4.5 (3.5-5.0) g/dL Amylase 98 (30-110) U/L Lipase 154 (23-300) U/L Urine Color YELLOW (YELLOW) Urine Appearance CLEAR (CLEAR) Urine pH 5.0 (5-6) Ur Specific [place] 1.025 (1.005-1.025) POC Urine Protein Conf NEGATIVE (Negative) Urine Ketones NEGATIVE (NEGATIVE) Urine Nitrite NEGATIVE (NEGATIVE) Urine Bilirubin NEGATIVE (NEGATIVE) Urine Urobilinogen 0.2 (0-1) mg/dL Urine Leukocytes NEGATIVE (NEGATIVE) Urine RBC TRACE-LYSED A (0-5) Reza/ul Urine Microscopic RBC Pending Urine Microscopic WBC Pending Ur Epithelial Cells Pending Urine Bacteria Pending Urine Culture Reflexed Pending Urine Glucose NEGATIVE (NEGATIVE) mg/dL - Progress Progress: improved, pain not gone completely, re-examined Progress Note: 04/06/23 15:39 This patient's medical issue is 1 of moderate complexity the level complex in the workup performed is based on review the patient's past medical history, review the patient's medication list, review of patient's drug allergy list, history present illness and physical findings on examination. This patient's workup includes placement of intravenous line, infusion of Zofran 4 mg, infusion of Dilaudid, CBC, CMP, amylase level, lipase level, urinalysis, CT scan of the abdomen pelvis without contrast. 04/06/23 17:02 I reviewed and interpreted the patient's lab results. We are awaiting the urinalysis. The machine that reads the urine for urinalysis studies has been down and will be back up and functioning within an hour per lab communication. CT scan of the abdomen pelvis without contrast shows tiny right and left renal cortical cyst. There is mild perinephric fat stranding. There is a tiny, 3 mm radiodense focus projecting over the right vesicoureteral rec junction with mild proximal dilatation. There is mild urinary bladder wall thickening. This study was interpreted by the radiologist and I reviewed the impression. Patient was informed of the findings. Counseled pt/family regarding: lab results, diagnosis, need for follow-up, rad results Medical Desision Making - Diagnostic Testing Diagnostic test were ordered, analyzed, and reviewed by me: Yes Radiological Interpretation: Reviewed by me, Teleradiologist Report - Risk of complications The pt has a mod risk of morbidity or mortality based on: Need for prescription drug management - Departure Departure Disposition: Home Clinical Impression: Ureterolithiasis Condition: Stable Critical Care Time: No Referrals: NGUYEN GALVAN MD [Primary Care Provider] - Follow up/PCP as directed Additional Instructions: Drink plenty of fluids. Take your medication as prescribed. Call your urologist tomorrow, 04/07/2023 to make arrangements for further evaluation and management as well as make a follow-up appointment. Prescriptions: Hydrocodone/APAP 5/325 [[place] 5/325 mg] 1 each PO Q8H PRN PRN #10 tablet MDD 3 PRN Reason: Pain Tamsulosin HCl 0.4 mg [Flomax 0.4 MG] 0.4 mg PO DAILY #5 cap
[2023-04-06] MEDS ORDERED: Zofran 4 MG/2 ML VIAL ONE (14:51)
[2023-04-06] MEDS ORDERED: Hydromorphone 1 mg/ml Injection ONE ×2 (14:52→17:05)
[2023-04-06] MEDS ORDERED: Sodium Chloride 0.9% 1000 ML 1,000 ML ONE (14:53)
[2023-04-06 14:57] LABS: Absolute Neutrophil Ct (ANC) 5.81 x10^3/uL (1.4-6.9); BASOPHIL % 0.4 % (0.0-0.4); Basophil (Absolute #) 0.04 x10^3/uL (0-0.4); Eosinophil % 1.3 % (0.00-5.0); Eosinophil (Absolute #) 0.12 x10^3/uL (0-0.5); Hematocrit 44.2 % (42-50); Hemoglobin 14.5 g/dL (12.5-18.0); IMMATURE GRAN # 0.03 x10^3u/L (0.00-0.03); IMMATURE GRAN % 0.3 % (0.00-0.4); Lymphocyte (Absolute #) 2.41 x10^3/uL (1.0-4.6); Lymphocytes % 25.9 % (24.0-44.0); Mean Cell Volume 81.1 fL (78-100); Mean Corpuscular Hemoglobin 26.6 pg (26-32); Mean Corpuscular Hgb Concent. 32.8 g/dL (32-36); Mean Platelet Volume 9.3 fL (7.5-11.0); Monocyte (Absolute #) 0.88 x10^3/uL (0.0-1.3); Monocytes % 9.5 % (0.0-12.0); Neutrophil % 62.6 % (36.0-66.0); Platelet Count 291 x10^3/uL (150-450); Red Blood Count 5.45 x10^6/uL (4.1-5.6); Red Cell Distribution Width 12.8 % (11.5-14.0); White Blood Count 9.3 x10^3/uL (4.0-10.5)
[2023-04-06 15:03] VITALS: TEMP 97.4
[2023-04-06 15:14] LABS: ALBUMIN 4.5 g/dL (3.5-5.0); ANION GAP 14.3 MEQ/L (5-15); BILIRUBIN,TOTAL 0.6 mg/dL (0.2-1.3); Calcium 9.1 mg/dL (8.4-10.2); Creatinine 1 1.04 mg/dL (0.66-1.25); EST GLOMERULAR FILTRATION RATE 83.8 ML/MIN; Potassium 3.7 mmol/L (3.5-5.1); Total Protein 7.7 g/dL (6.3-8.2)
--- NOTE | 2023-04-06 16:25 | XRAY ---
CLINICAL HISTORY:Flank pain COMPARISON:CT study dated 07/08/2022. TECHNIQUE:CT scan of the abdomen and pelvis was performed without IV contrast. Coronal and sagittal reconstructive images were also obtained. FINDINGS: Abdomen: The liver is enlarged in size and measures 17 cm. No diffuse parenchymal abnormality. The portal vein, intrahepatic biliary radicals and the bile ducts are normal. Redemonstration of multiple hypodense hepatic foci with stationary course likely hepatic cysts. The spleen, pancreas, and adrenal glands are unremarkable. Mild perinephric fat stranding bilaterally. A tiny right-sided renal cortical cyst at the lower pole measures 11 x 9 mm. (Ser;4. Im). A tiny exophytic left renal cortical cyst at the upper pole of the left kidney measures 11 x 10mm. (Ser:601, Im) Tiny millimetric cortical foci of calcification within the bilateral kidneys, likely non-obstructing tiny calculi. The gallbladder is normal. No pericholecystic collection or radio-dense calculi in the gall bladder. A small hiatal hernia is noted. The ascending colon, the transverse colon, and, visualized small bowel loops are unremarkable. Redemonstration of multiple transverse and to a greater extent descending and rectosigmoid diverticulosis are noted. No evidence of free air or active inflammation. There is no evidence of significant enlargement of the mesenteric or retroperitoneal lymph nodes. Tiny fat-containing umbilical hernia. The scanned lower chest shows a few bilateral linear atelectatic bands. No definite consolidation nor collapse. Pelvis: There is apparent mild wall thickening of the urinary bladder, for clinical correlation. A tiny 3 mm radiodense focus is noted projecting over the right vesicoureteric junction with mild upstream distal ureteric dilatation. The prostate is unremarkable with internal claficiations noted. The pelvic vasculature is unremarkable. No evidence of pelvic lymphadenopathy. Non visualized appendix. The osseous structures in the pelvis, lower rib cage, and lumbar spine show no lytic or sclerotic bone lesions. Degerntaive changes of the visualized spine. IMPRESSION: 1. A tiny 3 mm radiodense focus is noted projecting over the right vesicoureteric junction with mild upstream distal ureteric dilatation. 2. Bilateral tiny renal calcific foci likely represent non-obstructing calculi and bilateral small simple renal cortical cysts. 3. Apparent mild urinary bladder wall thickening, requires clinical correlation. 4. Redemonstration of multiple hypodense hepatic foci with stationary course likely hepatic cysts. 5. Redemonstration of multiple transverse and to a greater extent descending and sigmoid diverticulosis are noted. 6. No evidence of free air or active inflammation. 7. Tiny fat-containing umbilical hernia and hiatal hernia. Electronically Signed by: Neil Patel MD. (04/06/2023 16:21:59 EST)
[2023-04-06 17:27] LABS: Appearance CLEAR (CLEAR); Bilirubin NEGATIVE (NEGATIVE); Glucose NEGATIVE (NEGATIVE); Ketones NEGATIVE (NEGATIVE); Protein,Urine Dip NEGATIVE (Negative); RBC TRACE-LYSED Ery/ul (0-5); Specific Gravity 1.025 (1.005-1.025)
[2023-04-06 17:28] LABS: Nitrite NEGATIVE (NEGATIVE); Urobilinogen 0.2 mg/dL (0-1)
[2023-04-06 17:53] VITALS: BP 128/86; PULSE 80; RESP 16; O2SAT 96
[2023-04-06] MEDS ORDERED: NORCO 5/325 MG PO ONE (18:13)
[2023-04-06] MEDS ORDERED: ZOFRAN ODT 4 MG PO ONE ×2 (18:14→18:23)
[2023-04-06] MEDS ORDERED: ZOFRAN ODT 4 MG ONE (18:16)
[2023-04-06] MEDS ORDERED: NORCO 5/325 MG ONE (18:17)
[2023-04-06 18:24] LABS: ADD URINE CULTURE? NO (NO); Bacteria None Seen /HPF (None Seen); Epithelial Cells Rare /HPF (None Seen); Hyaline Casts 0-2 /LPF (0-2); RBC 0-2 /HPF (0-5); WBC 0-2 /HPF (0-5)
== END 2023-04-06 18:27 | disposition home or self-care (01) ==
LOC: ED 14:27
DX: N20.1 Calculus of ureter (principal); R10.9 Unspecified abdominal pain; E78.5 Hyperlipidemia, unspecified; E11.9 Type 2 diabetes mellitus without complications; I10 Essential (primary) hypertension; Z79.84 Long term (current) use of oral hypoglycemic drugs; Z79.891 Long term (current) use of opiate analgesic; Z79.899 Other long term (current) drug therapy
CPT/HCPCS: 36000; 36415; 74176; 80053; 81015; 82150; 83690; 85025; 96374; 96375; 96376; 99284; J1170; J2405; Q0162; A9270-GY

== ENCOUNTER 2024-05-13 13:36 | Emergency (ER) | payer OTHER ==
[2024-05-13 14:09] VITALS: TEMP 98.1
--- NOTE | 2024-05-13 14:26 | ERPHSYRPT ---
- History of Present Illness Time Seen by Provider: 05/13/24 14:15 Source: patient Exam Limitations: no limitations Patient Subjective Stated Complaint: Cough Triage Nursing Assessment: Patient ambulated back to ED and transferred self to bed. Patient A+O X3. Patient's skin flushed, warm and dry. Patient initial O2 sat noted to be 88% on room air. Patient does wear 2 liters per N/C at noc at home. Patient placed on 3 liters per N/C at this time. Patient complains of non productive cough and occasional SOB. Patient was seen on 05/10/2004 and dx with Acute Bronchitis and was given Celestone 6mg IM injection and PO Benzonatate. Lungs noted to be diminished throughout. Physician History: The patient, with obstructive sleep apnea, presents with persistent coughing and low oxygen saturation. He began experiencing a persistent 'barking' cough on Tuesday evening. Despite receiving a steroid shot and taking Tessalon Perles three times a day, the cough has persisted. He has also experienced difficulty sleeping from Tuesday through Tuesday, which he suspects may be related to the steroid treatment. No significant chest pain is reported, but there is muscle soreness from coughing. He normally uses oxygen at night and a CPAP machine but has not used the CPAP for a day or two due to excessive coughing. He has been inconsistent with daytime oxygen use, noting oxygen saturation levels dropping to 86-87%. He has a history of obstructive sleep apnea and uses an inhaler, although he cannot recall the last time it was used. He mentions a history of being treated with doxycycline for ten days, which ended two days prior to the current symptoms, due to a tick bite with a red ring around it in April. He has not noticed any swelling and reports a low-grade fever of 100.1-100.2F on Tuesday, for which he took Tylenol. Timing/Duration: week(s) (1), worse Cough Quality/Degree: moderate, productive cough Possible Cause: no prior episodes Modifying Factors: Worsens With: coughing, exertion Associated Symptoms: fever, chills, cough, shortness of breath, No chest pain/soreness, No nasal congestion Allergies/Adverse Reactions: codeine [Codeine] Allergy (Mild, Verified 05/13/24 13:47) Home Medications: Amlodipine Besylate/Benazepril [Amlodipine-Benazepril 5-20 mg] 1 each PO DAILY 09/22/12 [History] Esomeprazole Magnesium [Nexium] 20 mg PO Q12H PRN PRN 07/31/19 [History] Ezetimibe 10 mg [Zetia 10 MG] 10 mg PO DAILY 07/31/19 [History] Metformin HCl 500 mg [Glucophage 500 MG] 500 mg PO DAILY 07/31/19 [History] Metoprolol Tartrate 25 mg [Lopressor 25MG Tab] 50 mg PO BID 07/31/19 [History] Nitroglycerin 0.4 mg (Ed) [Nitrostat 0.4 MG (ED)] 0.4 mg SL DAILY 07/31/19 [History] Potassium Chloride Tab* [Klor Con 10 MEQ] 20 meq PO DAILY 07/31/19 [History] hydroCHLOROthiazide [Hydrochlorothiazide] 12.5 mg PO DAILY 07/31/19 [History] Isosorbide Mononitrate 30 mg [Imdur 30 MG] 30 mg PO DAILY 12/03/20 [History] Sotalol HCl 80 mg [Betapace 80 MG] 80 mg PO BID 12/03/20 [History] Ranolazine 500 MG [Ranexa 500 MG] 1,000 mg PO BID 10/09/21 [History] Albuterol Sulfate [Albuterol Sulfate Hfa] 2 puff IH Q4H PRN PRN 04/15/22 [History] Atorvastatin Calcium [Lipitor] 80 mg PO DAILY 04/06/23 [History] Dabigatran Etexilate Mesylate [Pradaxa] 150 mg PO DAILY 04/06/23 [History] Isosorbide Mononitrate 60 mg [Imdur 60MG] 60 mg PO DAILY 04/06/23 [History] Losartan Potassium [Cozaar] 25 mg PO DAILY 04/06/23 [History] Hx Tetanus, Diphtheria Vaccination/Date Given: No Hx Influenza Vaccination/Date Given: Yes Hx Pneumococcal Vaccination/Date Given: No Immunizations Up to Date: Yes Travel Risk - International Travel Have you traveled outside of the country in past 3 weeks: No - Emerging Infectious Disease Are you exhibiting symptoms associated with any current EIDs: Yes Symptoms: Cough: New Onset, Shortness of Breath - Review of Systems All Other Systems: Reviewed and Negative - Past Medical History Pertinent Past Medical History: Yes Neurological History: Migraines, TIA ENT History: No Pertinent History Cardiac History: Arrhythmia, High Cholesterol, Hypertension Respiratory History: No Pertinent History Endocrine Medical History: No Pertinent History, Diabetes Type II Musculoskeletal History: No Pertinent History GI Medical History: No Pertinent History History: No Pertinent History Psycho-Social History: No Pertinent History Male Reproductive Disorders: No Pertinent History Other Medical History: CARDIOMYOPATHY - Past Surgical History Past Surgical History: Yes Neuro Surgical History: No Pertinent History Cardiac: No Pertinent History, Cardiac Catheterization Respiratory: No Pertinent History Gastrointestinal: Appendectomy Genitourinary: No Pertinent History Musculoskeletal: No Pertinent History Male Surgical History: No Pertinent History Other Surgical History: Last heart cath April 2019 - Social History Smoking Status: Never smoker Exposure to second hand smoke: No Drug Use: none Patient Lives Alone: No - Social Determinants of Health Will the patient participate in the screening: Yes Do you worry about a steady place to live?: No Do you have any problems with any of the following?: No known problems In the past 12 months,have you had to go without utilities?: No Transportation Issues: No Has anyone in your support network made you feel unsafe?: No Have you or anyone in your house had to go without enough: No - Nursing Vital Signs Nursing Vital Signs: Initial Vital Signs Pulse Rate 87 05/13/24 13:47 Respiratory Rate 25 H 05/13/24 13:47 Blood Pressure 144/90 05/13/24 13:47 O2 Sat by Pulse Oximetry 93 L 05/13/24 13:47 Pain Scale Pain Intensity 0 - Physical Exam General Appearance: no apparent distress Eye Exam: eyes nml inspection Ears, Nose, Throat Exam: normal ENT inspection, pharyngeal erythema Neck Exam: normal inspection, supple, full range of motion Respiratory Exam: airway intact, rhonchi, No respiratory distress Cardiovascular Exam: regular rate/rhythm, capillary refill <2 sec, No edema Gastrointestinal/Abdomen Exam: soft, No tenderness, No distention, No mass, No guarding, No rebound Neurologic Exam: alert, oriented x 3, cooperative Skin Exam: normal color, warm, dry, No rash SpO2 Interpretation: borderline oxygenation SpO2: 88 O2 Delivery: Nasal Cannula - Course Nursing assessment & vital signs reviewed: Yes Ordered Tests: Active Orders 24 hr Category Date Time Status CHEST WITHOUT CONTRAST [CT] Stat Exams 05/13/24 14:46 Completed CBC W DIFF Stat Lab 05/13/24 14:30 Completed CMP Stat Lab 05/13/24 14:30 Completed NT PRO BNPII Stat Lab 05/13/24 14:30 Completed PROCALCITONIN Stat Lab 05/13/24 14:30 Completed Respiratory Therapy Assessment DAILY RT 05/13/24 14:37 Completed Medication Summary Discontinued Medications Generic Name Dose Route Start Last Admin Trade Name Freq PRN Reason Stop Dose Admin Albuterol/Ipratropium 3 ml 05/13/24 14:26 05/13/24 14:44 Ipratropium/Albuterol Sulfate 3 Ml Ampul.Neb IH 05/13/24 14:27 3 ml STAT ONE Administration Albuterol/Ipratropium Confirm 05/13/24 14:32 Ipratropium/Albuterol Sulfate 3 Ml Ampul.Neb Administered 05/13/24 14:33 Dose 3 ml IH .STK-MED ONE Sodium Chloride 1,000 mls @ 999 mls/hr 05/13/24 14:26 05/13/24 14:37 Sodium Chloride 0.9% 1000 Ml IV 05/13/24 15:26 999 mls/hr .Q1H1M STA Administration Levofloxacin/Dextrose 750 mg in 150 mls @ 100 mls/hr 05/13/24 14:26 05/13/24 14:36 Levofloxacin 750mg/150ml D5w IV 05/13/24 15:55 100 ml/hr STAT STA 100 mls/hr Administration Sodium Chloride Confirm 05/13/24 14:31 Sodium Chloride 0.9% 1000 Ml Administered 05/13/24 14:32 Dose 1,000 mls @ ud .ROUTE .STK-MED ONE Levofloxacin/Dextrose Confirm 05/13/24 14:31 Levofloxacin 750mg/150ml D5w Administered 05/13/24 14:32 Dose 750 mg in 150 mls @ ud IV .STK-MED ONE Lab/Rad Data: Laboratory Result Diagrams 05/13/24 14:30 05/13/24 14:30 Laboratory Results 05/13/24 05/13/24 05/13/24 Range/Units 14:47 14:30 14:30 WBC (4.23-9.07) x10^3/uL RBC (4.63-6.08) x10^6/uL Hgb (13.7-17.5) g/dL Hct (40.1-51.0) % MCV (79.0-92.2) fL MCH (25.7-32.2) pg MCHC (32.3-36.5) g/dL RDW (11.6-14.4) % Plt Count (163-337) x10^3/uL MPV (9.4-12.4) fL Gran % (34.0-67.9) % Immature Gran % (Auto) (0.001-0.429) % Nucleat RBC Rel Count (0.00-0.2) % Eos # (Auto) (0.04-0.54) x10^3/uL Immature Gran # (Auto) (0.001-0.031) x10^3u/L Absolute Lymphs (auto) (1.32-3.57) x10^3/uL Absolute Monos (auto) (0.30-0.82) x10^3/uL Absolute Nucleated RBC (0.00-0.012) x10^3u/L Lymphocytes % (21.8-53.1) % Monocytes % (5.3-12.2) % Eosinophils % (0.8-7.0) % Basophils % (0.2-1.2) % Absolute Granulocytes (1.78-5.38) x10^3/uL Basophils # (0.01-0.08) x10^3/uL Sodium 137 (135-145) mmol/L Potassium 3.5 (3.5-5.1) mmol/L Chloride 101 (98-107) mmol/L Carbon Dioxide 23 (22-30) mmol/L Anion Gap 16.6 H (5-15) MEQ/L BUN 17 (9-20) mg/dL Creatinine 0.90 (0.66-1.25) mg/dL Estimated GFR 99.0 ML/MIN Glucose 209 H (74-106) mg/dL Calcium 8.7 (8.4-10.2) mg/dL Total Bilirubin 0.40 (0.2-1.3) mg/dL AST 47 (17-59) U/L ALT 59 H (0-50) U/L Alkaline Phosphatase 76 (38-126) U/L NT-Pro-B Natriuret Pep < 20.0 (<300) pg/mL Serum Total Protein 7.0 (6.3-8.2) g/dL Albumin 4.0 (3.5-5.0) g/dL Procalcitonin 0.094 H (0.030-0.080) ng/mL Influenza Type A Ag POSITIVE A (NEGATIVE) Influenza Type B Ag NEGATIVE (NEGATIVE) RSV (PCR) NEGATIVE (NEGATIVE) SARS-CoV-2 (PCR) NEGATIVE (NEGATIVE) 05/13/24 Range/Units 14:30 WBC 6.5 (4.23-9.07) x10^3/uL RBC 5.56 (4.63-6.08) x10^6/uL Hgb 14.5 (13.7-17.5) g/dL Hct 44.8 (40.1-51.0) % MCV 80.6 (79.0-92.2) fL MCH 26.1 (25.7-32.2) pg MCHC 32.4 (32.3-36.5) g/dL RDW 13.2 (11.6-14.4) % Plt Count 239 (163-337) x10^3/uL MPV 9.8 (9.4-12.4) fL Gran % 52.8 (34.0-67.9) % Immature Gran % (Auto) 0.3 (0.001-0.429) % Nucleat RBC Rel Count 0.0 (0.00-0.2) % Eos # (Auto) 0.16 (0.04-0.54) x10^3/uL Immature Gran # (Auto) 0.02 (0.001-0.031) x10^3u/L Absolute Lymphs (auto) 1.51 (1.32-3.57) x10^3/uL Absolute Monos (auto) 1.32 H (0.30-0.82) x10^3/uL Absolute Nucleated RBC 0.00 (0.00-0.012) x10^3u/L Lymphocytes % 23.4 (21.8-53.1) % Monocytes % 20.5 H (5.3-12.2) % Eosinophils % 2.5 (0.8-7.0) % Basophils % 0.5 (0.2-1.2) % Absolute Granulocytes 3.41 (1.78-5.38) x10^3/uL Basophils # 0.03 (0.01-0.08) x10^3/uL Sodium (135-145) mmol/L Potassium (3.5-5.1) mmol/L Chloride (98-107) mmol/L Carbon Dioxide (22-30) mmol/L Anion Gap (5-15) MEQ/L BUN (9-20) mg/dL Creatinine (0.66-1.25) mg/dL Estimated GFR ML/MIN Glucose (74-106) mg/dL Calcium (8.4-10.2) mg/dL Total Bilirubin (0.2-1.3) mg/dL AST (17-59) U/L ALT (0-50) U/L Alkaline Phosphatase (38-126) U/L NT-Pro-B Natriuret Pep (<300) pg/mL Serum Total Protein (6.3-8.2) g/dL Albumin (3.5-5.0) g/dL Procalcitonin (0.030-0.080) ng/mL Influenza Type A Ag (NEGATIVE) Influenza Type B Ag (NEGATIVE) RSV (PCR) (NEGATIVE) SARS-CoV-2 (PCR) (NEGATIVE) - Progress Progress: improved Air Movement: good Progress Note: 05/13/24 14:44 Cough Persistent barking cough since Tuesday evening, severe enough to interfere with CPAP use and oxygen therapy. Minimal relief from Tessalon Perles three times daily. Likely contributing to sore chest muscles. No significant swelling or high fever, but low-grade fever present. - Prescribe more effective antitussive medication. Possible Pneumonia Fever (100.1-100.2F) and persistent cough. Recent negative COVID test. Pneumonia considered, but recent completion of a 10-day doxycycline course for a tick bite complicates starting another antibiotic. Chest x-ray considered as a diagnostic tool. Prefers to wait for current treatment to resolve symptoms before further intervention. - Consider chest x-ray if symptoms persist. Hypoxemia Intermittent hypoxemia with oxygen saturation dropping to 86-87%. Normally uses oxygen at night and intermittently during the day. Low oxygen levels more pronounced since yesterday. Inconsistent daytime oxygen use due to coughing. 05/13/24 16:00 Flu A positive, procal elevated, given Levofloxacin in ED today, will DC home on Levofloxacin. Remainder of labs unremarkable. Blood Culture(s) Obtained: No Antibiotics given: Yes Counseled pt/family regarding: lab results, diagnosis, need for follow-up, rad results Medical Desision Making - Diagnostic Testing Diagnostic test were ordered, analyzed, and reviewed by me: Yes Radiological Interpretation: Interpreted by me, Reviewed by me, Teleradiologist Report - Risk of complications The pt has a mod risk of morbidity or mortality based on: Need for prescription drug management - Departure Departure Disposition: Home Clinical Impression: Influenza A, Pneumonia and influenza Condition: Stable Critical Care Time: No Referrals: NGUYEN GALVAN MD [Primary Care Provider] - Follow up/PCP as directed Instructions: Pneumonia, Adult (DC) Prescriptions: levoFLOXacin [Levofloxacin] 750 mg PO DAILY 6 Days #6 tablet
[2024-05-13] MEDS ORDERED: LEVOFLOXACIN 750MG/150ML D5W 750 MG/150 ML BAG IV ONE (14:31)
[2024-05-13] MEDS ORDERED: Sodium Chloride 0.9% 1000 ML 1,000 ML ONE (14:31)
[2024-05-13] MEDS ORDERED: DUONEB 0.5-3 MG/3 ml Neb IH ONE (14:32)
[2024-05-13 14:33] LABS: Absolute Neutrophil Ct (ANC) 3.41 x10^3/uL (1.78-5.38); BASOPHIL % 0.5 % (0.2-1.2); Basophil (Absolute #) 0.03 x10^3/uL (0.01-0.08); Eosinophil % 2.5 % (0.8-7.0); Eosinophil (Absolute #) 0.16 x10^3/uL (0.04-0.54); Hematocrit 44.8 % (40.1-51.0); Hemoglobin 14.5 g/dL (13.7-17.5); IMMATURE GRAN # 0.02 x10^3u/L (0.001-0.031); IMMATURE GRAN % 0.3 % (0.001-0.429); Lymphocyte (Absolute #) 1.51 x10^3/uL (1.32-3.57); Lymphocytes % 23.4 % (21.8-53.1); Mean Cell Volume 80.6 fL (79.0-92.2); Mean Corpuscular Hemoglobin 26.1 pg (25.7-32.2); Mean Corpuscular Hgb Concent. 32.4 g/dL (32.3-36.5); Mean Platelet Volume 9.8 fL (9.4-12.4); Monocyte (Absolute #) 1.32 x10^3/uL (0.30-0.82); Monocytes % 20.5 % (5.3-12.2); Neutrophil % 52.8 % (34.0-67.9); Platelet Count 239 x10^3/uL (163-337); Red Blood Count 5.56 x10^6/uL (4.63-6.08); Red Cell Distribution Width 13.2 % (11.6-14.4); White Blood Count 6.5 x10^3/uL (4.23-9.07)
[2024-05-13] MEDS: LEVOFLOXACIN 750MG/150ML D5W 750 MG/150 ML BAG IV STA (14:36)
[2024-05-13] MEDS: Sodium Chloride 0.9% 1000 ML 1,000 ML IV STA (14:37)
[2024-05-13] MEDS: DUONEB 0.5-3 MG/3 ml Neb IH ONE (14:44)
[2024-05-13 14:45] LABS: ANION GAP 16.6 MEQ/L (5-15); BILIRUBIN,TOTAL 0.4 mg/dL (0.2-1.3); Calcium 8.7 mg/dL (8.4-10.2); Creatinine 1 0.9 mg/dL (0.66-1.25); Potassium 3.5 mmol/L (3.5-5.1)
[2024-05-13 15:02] LABS: NT PRO BNPII < 20.0 pg/mL (<300); PROCALCITONIN 0.094 ng/mL (0.030-0.080)
--- NOTE | 2024-05-13 15:52 | XRAY ---
CLINICAL HISTORY: sob, hypoxia COMPARISON: None. TECHNIQUE: Contiguous axial CT images of the chest were acquired without administration of intravenous contrast. Coronal and sagittal reconstructions were obtained. One of the following dose reduction techniques was utilized for this exam: Automated exposure control, adjustment of the mA and/or kV according to patient size, and use of iterative reconstruction. FINDINGS: Lungs: Bilateral lower lung lobar thick interlacing atelectatic bands and localized pleural thickening with minimal surrounding ground-glass attenuation and peribronchial thickening, likely infection residuals. No pulmonary nodules or masses are identified. No evidence of interstitial lung disease or emphysema. No pleural effusion or pleural thickening. Mediastinum: The mediastinum is normal in size and contour. No mediastinal mass or abnormal lymphadenopathy. The heart size is within normal limits. Hilar Structures: The hilar structures appear normal without enlargement or abnormality. Trachea and Main Bronchi: The trachea and main bronchi are patent without evidence of obstruction or abnormality. Chest Wall: The chest wall is unremarkable with no evidence of soft tissue or bony abnormalities. Upper Abdomen: Two small hepatic cysts, bilateral tiny renal stones/gravels, and mild left hydronephrosis. Bones: Mild spondylotic changes. No evidence of fracture or lytic/sclerotic lesions. IMPRESSION: 1. Bilateral lower lung lobar thick interlacing atelectatic bands and localized pleural thickening with minimal surrounding ground-glass attenuation and peribronchial thickening, likely infection residuals. 2. Two small hepatic cysts, bilateral tiny renal stones/gravels, and mild left hydronephrosis. A dedicated US or CT abdominal study is advised. Electronically Signed by: Neil Patel MD. (05/13/2024 15:48:49 EST)
[2024-05-13 15:53] LABS: INFLUENZA B NEGATIVE (NEGATIVE); RESPIRATORY SYNCTIAL VIRUS NEGATIVE (NEGATIVE); SARS-CoV-2 Xpert Express NEGATIVE (NEGATIVE)
[2024-05-13 15:55] LABS: INFLUENZA A POSITIVE (NEGATIVE)
[2024-05-13 16:06] VITALS: O2SAT 88
[2024-05-13] MEDS ORDERED: Levofloxacin 250MG Tablet ONE (16:14)
[2024-05-13] MEDS ORDERED: Levofloxacin 500 MG Tablet ONE (16:15)
[2024-05-13] MEDS: Levofloxacin 250MG Tablet PO ONE (16:23)
[2024-05-13] MEDS: Levofloxacin 500 MG Tablet PO ONE (16:23)
[2024-05-13 16:29] VITALS: BP 112/70; PULSE 84; RESP 19
== END 2024-05-13 16:38 | disposition home or self-care (01) ==
LOC: ED 13:36
DX: J10.00 Influenza due to other identified influenza virus with unspecified type of pneumonia (principal); R05.1 Acute cough; E78.5 Hyperlipidemia, unspecified; I10 Essential (primary) hypertension; E11.9 Type 2 diabetes mellitus without complications; Z79.84 Long term (current) use of oral hypoglycemic drugs; Z79.899 Other long term (current) drug therapy
CPT/HCPCS: 0241U; 36415; 71250; 80053; 83880; 84145; 85025; 94640; 96360; 96365; 96366; 99285; 99284; J1956; A9270-GY

== ENCOUNTER 2025-01-22 05:52 | Day surgery (SDC) | payer OTHER ==
[2025-01-22] MEDS: TETRACAINE 0.5% STERI-UNIT SOL OP ONE ×2 (06:12→06:32)
[2025-01-22] MEDS: Ak-Dilate OPHTHALMIC*** 0.71 ML, Cyclogyl 1% OPHTH SOL 0.71 ML, GATIFLOXACIN 0.5% OPHTH... OP SCH (06:13)
[2025-01-22 07:03] LABS: Calcium 8.6 mg/dL (8.4-10.2); Carbon Dioxide 26.0 mmol/L (22-30); Creatinine 1 0.91 mg/dL (0.66-1.25); EST GLOMERULAR FILTRATION RATE 97.1 ML/MIN; Glucose 114.0 mg/dL (74-106); Potassium 3.6 mmol/L (3.5-5.1)
[2025-01-22] MEDS ORDERED: propofoL IV ONE ×2 (07:53→10:01)
[2025-01-22] MEDS ORDERED: BETADINE 5% OPHTHALMIC 30 ML OP NR (08:00)
[2025-01-22] MEDS ORDERED: VIGAMOX/BSS 0.15% SYR IO NR (08:00)
[2025-01-22] MEDS ORDERED: Epinephrine Preservative Free 1 MG/ML INTRAOP NR (08:00)
[2025-01-22] MEDS ORDERED: DEXMEDETOMIDINE 80 MCG/20ML-NS IV NR (08:00)
[2025-01-22] MEDS ORDERED: TRIAMCINOLONE 15 MG/ML INJ INTRAOP NR (08:00)
[2025-01-22] MEDS ORDERED: Zofran 4 MG/2 ML VIAL IV PRN (08:00)
[2025-01-22] MEDS: ACETAZOLAMIDE 250 MG TABLET PO ONE (10:20)
[2025-01-22 10:41] VITALS: BP 99/68; PULSE 67; RESP 18; TEMP 97.4; O2SAT 98
== END 2025-01-22 10:49 | disposition home or self-care (01) ==
LOC: SDC 05:52
PROVIDERS: ATTEND Ophthalmology
DX: H25.811 Combined forms of age-related cataract, right eye (principal); I10 Essential (primary) hypertension

== ENCOUNTER 2025-02-26 08:02 | Day surgery (SDC) | payer OTHER ==
[2025-02-26] MEDS ORDERED: Ak-Dilate OPHTHALMIC*** 0.71 ML, Cyclogyl 1% OPHTH SOL 0.71 ML, GATIFLOXACIN 0.5% OPHTH... OP SCH (08:15)
[2025-02-26] MEDS ORDERED: TETRACAINE 0.5% STERI-UNIT SOL OP ONE ×2 (08:15)
[2025-02-26 08:42] LABS: Calcium 8.8 mg/dL (8.4-10.2); Carbon Dioxide 24.0 mmol/L (22-30); Creatinine 1 0.92 mg/dL (0.66-1.25); EST GLOMERULAR FILTRATION RATE 95.8 ML/MIN; Glucose 110.0 mg/dL (74-106); Potassium 3.9 mmol/L (3.5-5.1)
[2025-02-26] MEDS ORDERED: propofoL IV ONE ×2 (09:56→10:02)
[2025-02-26] MEDS ORDERED: SUBLIMAZE 100 MCG/2 ML ONE (10:04)
[2025-02-26] MEDS ORDERED: Epinephrine Preservative Free 1 MG/ML INTRAOP NR (10:15)
[2025-02-26] MEDS ORDERED: TRIAMCINOLONE 15 MG/ML INJ INTRAOP NR (10:15)
[2025-02-26] MEDS ORDERED: DEXMEDETOMIDINE 80 MCG/20ML-NS IV NR (10:15)
[2025-02-26] MEDS ORDERED: VIGAMOX/BSS 0.15% SYR IO NR (10:15)
[2025-02-26] MEDS ORDERED: Zofran 4 MG/2 ML VIAL IV PRN (10:15)
[2025-02-26] MEDS ORDERED: BETADINE 5% OPHTHALMIC 30 ML OP NR (10:15)
[2025-02-26 10:28] VITALS: RESP 16
[2025-02-26] MEDS: ACETAZOLAMIDE 250 MG TABLET PO ONE (10:29)
[2025-02-26 10:32] VITALS: BP 114/77; PULSE 71; O2SAT 93
[2025-02-26 10:49] VITALS: TEMP 96.7
== END 2025-02-26 10:45 | disposition home or self-care (01) ==
LOC: SDC 08:02
PROVIDERS: ATTEND Ophthalmology
DX: H25.812 Combined forms of age-related cataract, left eye (principal); E11.9 Type 2 diabetes mellitus without complications